=== PATIENT | female | born 1950 | race Caucasian/White ===

== ENCOUNTER 2017-03-12 04:45 | Inpatient (IN) | payer MEDICARE ==
[2017-03-12] MEDS ORDERED: KETOROLAC 30 MG/ML 1 ML VIAL IVP STA (05:15)
[2017-03-12 05:41] LABS: Basophils # (A) 0.1 k/uL (0-0.2); Basophils % (A) 1 %; CH 34.5; CHCM 35.5; Eosinophils # (A) 0.7 k/uL (0-0.7); Eosinophils % (A) 10 %; HCT 37.6 % (34.0-46.0); HDW 2.76; Luc # (Auto) 0.14; Luc % (Auto) 2; Lymphocytes # (A) 3.1 k/uL (1.0-4.8); Lymphocytes % (A) 48 %; MCH 33.7 pg (25.0-35.0); MCHC 34.5 g/dL (31.0-37.0); MCV 97.8 fL (80.0-100.0); Mean Platelet Volume 8.7; Monocytes # (A) 0.4 k/uL (0-1.0); Monocytes % (A) 6 %; Neutrophils % (A) 32 %; RBC 3.85 m/uL (3.80-5.40); WBC 6.4 k/uL (3.8-10.6); WBC (Perox) 5.89
[2017-03-12 06:14] LABS: ALT 31 U/L (9-52); AST 27 U/L (14-36); Alkaline Phosphatase 81 U/L (38-126); Anion Gap 7 mmol/L; Blood Urea Nitrogen 18 mg/dL (7-17); Calcium 9.3 mg/dL (8.4-10.2); Carbon Dioxide 29 mmol/L (22-30); Chloride 103 mmol/L (98-107); Glucose 92 mg/dL (74-99); Non-African American GFR(MDRD) >60 (>60 ml/min/1.73 sqM); Potassium 3.5 mmol/L (3.5-5.1); Sodium 139 mmol/L (137-145); Total Bilirubin 0.4 mg/dL (0.2-1.3); Total Protein 6.2 g/dL (6.3-8.2)
[2017-03-12 06:35] LABS: Erythrocyte Sedimentation Rate 9 mm/hr (0-20)
--- NOTE | 2017-03-12 06:45 | ED ---
Seizure HPI - General Source: patient Mode of arrival: wheelchair Limitations: no limitations - History of Present Illness MD Complaint: seizure Onset/Timin -: hour(s) Description of Episode: loss of consciousness, tonic-clonic movement -: second(s) Witnessed: yes - by bystander Trauma: No Place: home Possible Precipitating Event: none <Julian Buckley - Last Filed: 03/12/17 06:50> <Brandon Royal - Last Filed: 03/12/17 08:00> - General Chief Complaint: Seizure Stated Complaint: seizure,arm pain,nausea Time Seen by Provider: 03/12/17 05:03 - History of Present Illness Initial Comments: This patient is a 66-year-old woman with 2 complaints. The first is that she is having some pain to her left arm. She states it seems to start somewhere in her left thoracic back or under the axilla, and it goes towards her left elbow and forearm. This pain is been present for a month but is been getting worse over approximately a week or so. She states that she first had the pain probably over 6 months ago and it ended up with her having an ulnar nerve release in August in [place] which did relieve the pain and she did not have symptoms until a month ago. She describes the pain as a deep aching, severe intensity, without any worsening or relieving factors. The patient believes that this may have precipitated the seizure tonight. She does have history of seizures and takes Keppra for this. Patient denies any trauma as a result of the seizure. She is back to baseline currently. (Julian Buckley) - Related Data Home Medications Medication Instructions Recorded Confirmed Allopurinol [Zyloprim] 300 mg PO DAILY@1200 08/15/14 05/08/15 Aspirin 81 mg PO DAILY 08/15/14 05/08/15 Calcium Carbonate/Vitamin D3 1 tab PO BID 08/15/14 05/08/15 [Calcium 600 + Vit D Tablet] Cyanocobalamin [Vitamin B-12] 1,000 mcg PO DAILY@1200 08/15/14 05/08/15 Hydrochlorothiazide [Hydrodiuril] 25 mg PO DAILY@1200 08/15/14 05/08/15 Irbesartan [Avapro] 300 mg PO HS 08/15/14 05/08/15 L.acidoph/B.long/L.plant/B.lac 1 cap PO DAILY 08/15/14 05/08/15 [Probiotic Acidophilus Beads] Multivitamin/Iron/Folic Acid 0.5 tab PO BID 08/15/14 05/08/15 [Centrum Complete Multivit Tab] Niacin [Niaspan] 500 mg PO HS 08/15/14 05/08/15 Mabie-3 Fatty Acids/Fish Oil [Fish 1 cap PO BID 08/15/14 05/08/15 Oil 1,000 mg Softgel] Potassium Chloride [Klor-Con 10] 10 meq PO DAILY 08/15/14 05/08/15 Propafenone [Rythmol] 150 mg PO TID 08/15/14 05/08/15 traMADol HCl [Ultram] 50 mg PO Q6H PRN 08/15/14 05/08/15 Tumeric/Curcumin 1 tab PO DAILY@1200 05/08/15 05/08/15 Previous Rx's Medication Instructions Recorded levETIRAcetam [Keppra] 500 mg PO Q12HR #120 tab 08/19/14 Cyclobenzaprine [Flexeril] 10 mg PO DAILY #30 tablet 05/10/15 Levofloxacin [Levaquin] 500 mg PO DAILY #3 tab 05/10/15 Magnesium Oxide [Mag-Ox] 250 mg PO DAILY #30 tab 05/10/15 Omeprazole [PriLOSEC] 20 mg PO DAILY #30 cap 05/10/15 Allergies Allergy/AdvReac Type Severity Reaction Status Date / Time celecoxib [From Celebrex] Allergy Severe MUSCLE PAIN Verified 03/12/17 04:52 dabigatran etexilate mesylate Allergy Unknown Verified 03/12/17 04:52 [From Pradaxa] rosuvastatin calcium Allergy Swelling Verified 03/12/17 04:52 [From Crestor] hydromorphone HCl AdvReac Severe SEIZURE Verified 03/12/17 04:52 [From Dilaudid] diclofenac sodium AdvReac GI BLEED Verified 03/12/17 04:52 [From Voltaren] gabapentin [From Neurontin] AdvReac Rash/Hives Verified 03/12/17 04:52 hydrocodone bitartrate AdvReac Nausea & Verified 03/12/17 04:52 [From Vicodin] Vomiting isradipine [From DynaCirc] AdvReac Rash/Hives Verified 03/12/17 04:52 oxycodone HCl AdvReac Nausea & Verified 03/12/17 04:52 [From OxyContin] Vomiting pregabalin [From Lyrica] AdvReac Rash/Hives Verified 03/12/17 04:52 simvastatin [From Zocor] AdvReac Rash/Hives Verified 03/12/17 04:52 Tetanus Vaccines and Toxoid AdvReac Rash/Hives Verified 03/12/17 04:52 [Tetanus Vaccines & Toxoid] tomato Allergy Rash/Hives Uncoded 03/12/17 04:52 dairy products AdvReac Abdominal Uncoded 03/12/17 04:52 Pain Review of Systems ROS Other: All systems not noted in ROS Statement are negative. Constitutional: Denies: fever, chills, weakness Respiratory: Denies: cough, dyspnea Cardiovascular: Reports: as per HPI, chest pain. Denies: palpitations, syncope Gastrointestinal: Denies: abdominal pain, vomiting, diarrhea, melena, hematochezia Genitourinary: Denies: dysuria Musculoskeletal: Reports: as per HPI, back pain, arthralgia Skin: Denies: rash, lesions Neurological: Denies: headache, weakness, numbness, paresthesias <Julian Buckley - Last Filed: 03/12/17 06:50> ROS Other: All systems not noted in ROS Statement are negative. <Brandon Royal - Last Filed: 03/12/17 08:00> ROS Statement: Those systems with pertinent positive or pertinent negative responses have been documented in the HPI. 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 IBS. History of Any Multi-Drug Resistant Organisms: None Reported Past Surgical History: Appendectomy, Back Surgery, Hysterectomy, Orthopedic Surgery Additional Past Surgical History / Comment(s): X4 BACK SX(LAMENTECTOMY X1 AND 3 FUSIONS), PARTIAL HYSTERECTOMY, FIBROIDS REMOVED,LT CARPAL TUNNE; THRASHER NEROMA LT FOOT, BONE SPURS REMOVED. Past Anesthesia/Blood Transfusion Reactions: Motion Sickness, Postoperative Nausea & Vomiting (PONV) Additional Past Anesthesia/Blood Transfusion Reaction / Comment(s): CLUASTERPHOBIC Past Psychological History: No Psychological Hx Reported Smoking Status: Never smoker Past Alcohol Use History: Rare Past Drug Use History: None Reported - Past Family History Father Family Medical History: CVA/TIA, Myocardial Infarction ([place]) Additional Family Medical History / Comment(s): AGE 57 [place] Mother Family Medical History: Cancer, Myocardial Infarction ([place]) Additional Family Medical History / Comment(s): LUNG CA. 72 FROM [place] <MelvinJulian roach - Last Filed: 03/12/17 06:50> General Exam Limitations: no limitations General appearance: alert, in no apparent distress, obese Head exam: Present: atraumatic, normocephalic Eye exam: Present: normal appearance. Absent: scleral icterus, conjunctival injection Neck exam: Present: normal inspection, full ROM. Absent: tenderness Respiratory exam: Present: normal lung sounds bilaterally. Absent: respiratory distress, wheezes, rales, rhonchi, stridor Cardiovascular Exam: Present: normal rhythm, bradycardia, normal heart sounds. Absent: systolic murmur, diastolic murmur, rubs, gallop GI/Abdominal exam: Present: soft. Absent: distended, tenderness, guarding, rebound, mass Extremities exam: Present: normal inspection, normal capillary refill. Absent: pedal edema, calf tenderness Back exam: Present: normal inspection, other (Patient does have some tenderness to palpation of the posterior thorax. It is located in the posterior axillary line overlying ribs approximately 4 through 6. No palpable deformity.). Absent : CVA tenderness (R), CVA tenderness (L) Neurological exam: Present: alert Skin exam: Present: warm, dry, intact, normal color. Absent: rash <MelvinJulian roach - Last Filed: 03/12/17 06:50> Medical Decision Making - Lab Data Result diagrams: 03/12/17 05:30 03/12/17 05:30 - EKG Data -: EKG Interpreted by Me EKG shows normal: sinus rhythm, axis (Left axis deviation), intervals (The QRS duration is 128 ms consistent with left bundle branch block. OR interval 198 ms , QTC 425 ms), QRS complexes ((Bundle-branch block pattern) Rate: bradycardia (Rate approximate 48 bpm) Interpretation: other (Similar to EKG from 08/15/2014) <Julian Buckley - Last Filed: 03/12/17 06:50> - Lab Data Result diagrams: 03/12/17 05:30 03/12/17 05:30 <KalpeshstoneyBrandon Paola - Last Filed: 03/12/17 08:00> - Lab Data Lab Results 03/12/17 03/12/17 03/12/17 Range/Units 05:30 05:30 05:30 WBC 6.4 (3.8-10.6) k/uL RBC 3.85 (3.80-5.40) m/uL Hgb 13.0 (11.4-16.0) gm/dL Hct 37.6 (34.0-46.0) % MCV 97.8 (80.0-100.0) fL MCH 33.7 (25.0-35.0) pg MCHC 34.5 (31.0-37.0) g/dL RDW 14.0 (11.5-15.5) % Plt Count 169 (150-450) k/uL Neutrophils % 32 % Lymphocytes % 48 % Monocytes % 6 % Eosinophils % 10 % Basophils % 1 % Neutrophils # 2.0 (1.3-7.7) k/uL Lymphocytes # 3.1 (1.0-4.8) k/uL Monocytes # 0.4 (0-1.0) k/uL Eosinophils # 0.7 (0-0.7) k/uL Basophils # 0.1 (0-0.2) k/uL ESR 9 (0-20) mm/hr D-Dimer (<0.60) mg/L FEU Sodium 139 (137-145) mmol/L Potassium 3.5 (3.5-5.1) mmol/L Chloride 103 (98-107) mmol/L Carbon Dioxide 29 (22-30) mmol/L Anion Gap 7 mmol/L BUN 18 H (7-17) mg/dL Creatinine 0.89 (0.52-1.04) mg/dL Est GFR (MDRD) Af Amer >60 (>60 ml/min/1.73 sqM) Est GFR (MDRD) Non-Af >60 (>60 ml/min/1.73 sqM) Glucose 92 (74-99) mg/dL Calcium 9.3 (8.4-10.2) mg/dL Total Bilirubin 0.4 (0.2-1.3) mg/dL AST 27 (14-36) U/L ALT 31 (9-52) U/L Alkaline Phosphatase 81 (38-126) U/L Troponin I <0.012 (0.000-0.034) ng/mL Total Protein 6.2 L (6.3-8.2) g/dL Albumin 3.9 (3.5-5.0) g/dL Urine Color Urine Appearance (Clear) Urine pH (5.0-8.0) Ur Specific Marcell (1.001-1.035) Urine Protein (Negative) Urine Glucose (UA) (Negative) Urine Ketones (Negative) Urine Blood (Negative) Urine Nitrite (Negative) Urine Bilirubin (Negative) Urine Urobilinogen (<2.0) mg/dL Ur Leukocyte Esterase (Negative) Urine RBC (0-5) /hpf Urine WBC (0-5) /hpf Urine WBC Clumps (None) /hpf Ur Squamous Epith Cells (0-4) /hpf Urine Mucus (None) /hpf 03/12/17 03/12/17 Range/Units 05:30 06:54 WBC (3.8-10.6) k/uL RBC (3.80-5.40) m/uL Hgb (11.4-16.0) gm/dL Hct (34.0-46.0) % MCV (80.0-100.0) fL MCH (25.0-35.0) pg MCHC (31.0-37.0) g/dL RDW (11.5-15.5) % Plt Count (150-450) k/uL Neutrophils % % Lymphocytes % % Monocytes % % Eosinophils % % Basophils % % Neutrophils # (1.3-7.7) k/uL Lymphocytes # (1.0-4.8) k/uL Monocytes # (0-1.0) k/uL Eosinophils # (0-0.7) k/uL Basophils # (0-0.2) k/uL ESR (0-20) mm/hr D-Dimer 4.56 H (<0.60) mg/L FEU Sodium (137-145) mmol/L Potassium (3.5-5.1) mmol/L Chloride (98-107) mmol/L Carbon Dioxide (22-30) mmol/L Anion Gap mmol/L BUN (7-17) mg/dL Creatinine (0.52-1.04) mg/dL Est GFR (MDRD) Af Amer (>60 ml/min/1.73 sqM) Est GFR (MDRD) Non-Af (>60 ml/min/1.73 sqM) Glucose (74-99) mg/dL Calcium (8.4-10.2) mg/dL Total Bilirubin (0.2-1.3) mg/dL AST (14-36) U/L ALT (9-52) U/L Alkaline Phosphatase (38-126) U/L Troponin I (0.000-0.034) ng/mL Total Protein (6.3-8.2) g/dL Albumin (3.5-5.0) g/dL Urine Color Yellow Urine Appearance Cloudy H (Clear) Urine pH 8.0 (5.0-8.0) Ur Specific Marcell 1.019 (1.001-1.035) Urine Protein 1+ H (Negative) Urine Glucose (UA) Negative (Negative) Urine Ketones Negative (Negative) Urine Blood Negative (Negative) Urine Nitrite Negative (Negative) Urine Bilirubin Negative (Negative) Urine Urobilinogen <2.0 (<2.0) mg/dL Ur Leukocyte Esterase Large H (Negative) Urine RBC 19 H (0-5) /hpf Urine WBC >182 H (0-5) /hpf Urine WBC Clumps Few H (None) /hpf Ur Squamous Epith Cells <1 (0-4) /hpf Urine Mucus Rare H (None) /hpf Disposition <Julian Buckley - Last Filed: 03/12/17 06:50> <Brandon Royal - Last Filed: 03/12/17 08:00> Clinical Impression: Epileptic seizure, Urinary tract infection, Pulmonary embolism Disposition: ADMITTED IP TO THIS HOSP Condition: Good Referrals: Kim Becerril MD [Primary Care Provider] - 1-2 days
[2017-03-12] MEDS ORDERED: RX INFO: IV CONTRAST WAS GIVEN 1 EACH MISC MISCELLANE PRN (06:49)
[2017-03-12 07:19] LABS: Appearance,Urine Cloudy (Clear); Bilirubin,Urine Negative (Negative); Glucose,Urine (UA) Negative (Negative); Ketones,Urine Negative (Negative); Leukocyte Esterase,Urine Large (Negative); Mucus,Urine Rare /hpf; Nitrite,Urine Negative (Negative); Particle Count 9822; Protein,Urine 1+ (Negative); RBC,Urine 19 /hpf (0-5); Specific Gravity,Urine 1.019 (1.001-1.035); Squamous Epithelial Cell,Urine <1 /hpf (0-4); UA Billing (MACRO vs. MICRO) MICRO; Urobilinogen,Urine <2.0 mg/dL (<2.0); WBC,Urine >182 /hpf (0-5)
--- NOTE | 2017-03-12 07:52 | CT ---
EXAMINATION TYPE: CT chest angio for PE DATE OF EXAM: 03/12/2017 COMPARISON: NONE HISTORY: Lt arm and Lt chest pain with elevated D-dimer CT DLP: 393.2 mGycm Automated exposure control for dose reduction was used. CONTRAST: CT Chest for pulmonary embolism performed with with IV Contrast, patient injected with 68 mL of Omnip aque 350. FINDINGS: The lungs are clear. There is no significant axillary, internal mammary, mediastinal or hil ar adenopathy. There is, embolus within the third order branches of the right lower lobe pulmonary artery. No other definite pulmonary emboli are seen. There is no evidence of right heart strain heart size is upper li mits of normal. There is no pleural or pericardial fluid. The aortic root is mildly dilated measuring 4 cm. At the level of the proximal arch aorta is aneurysmal measuring 3.6 cm. The remainder of the a mike is normal in caliber. There is a small hiatal hernia. Visualized upper abdominal structures are otherwise normal. There is been an interpedicular fusion in the upper lumbar spine. There is degenerative disc disease and hypertrophic spondylosis throughout the dorsal spine. No bony destructive lesion is seen. IMPRESSION: 1. THIS EXAMINATION IS POSITIVE FOR PULMONARY EMBOLUS IN THE RIGHT LOWER LOBE PULMONARY ARTERY. 2. ASCENDING THORACIC AORTIC ANEURYSM. 3. SMALL HIATAL HERNIA. 4. POSTSURGICAL AND DEGENERATIVE CHANGES WITHIN THE SPINE. This report was phoned to Dr. Buckley in the OR at the time of reporting.
[2017-03-12] MEDS ORDERED: MORPHINE SULFATE 4 MG/ML SYRINGE IV PRN (07:55)
[2017-03-12] MEDS ORDERED: HEPARIN SODIUM,PORCINE 5,000 UNIT/ML 1 ML VIAL IV PRN (07:57)
[2017-03-12] MEDS ORDERED: HEPARIN SODIUM,PORCINE 10,000 UNIT/ML 1 ML VIAL IV ONE (07:57)
[2017-03-12] MEDS: HEPARIN SODIUM,PORCINE/D5W PMX 25,000 UNIT in DEXTROSE/WATER 1 500ML.BAG IV SCH (08:23)
[2017-03-12 08:31] LABS: INR 1.1 (<1.2); Prothrombin Time 10.6 sec (9.0-12.0)
[2017-03-12 09:42] LABS: Partial Thromboplastin Time 21.2 sec (22.0-30.0)
--- NOTE | 2017-03-12 11:25 | ECHOF ---
Referral Reason:pe MEASUREMENTS -------- HEIGHT: 165.1 cm WEIGHT: 94.3 kg BP: 104/57 RVIDd: 2.9 cm (< 3.3) IVSd: 1.3 cm (0.6 - 1.1) LVIDd: 5.0 cm (3.9 - 5.3) LVPWd: 1.1 cm (0.6 - 1.1) IVSs: 1.5 cm LVIDs: 3.8 cm LVPWs: 1.3 cm LA Diam: 4.0 cm (2.7 - 3.8) LAESV Index (A-L): 42.75 ml/m Ao Diam: 2.6 cm (2.0 - 3.7) AV Cusp: 2.1 cm (1.5 - 2.6) LA Diam: 4.2 cm (2.7 - 3.8) MV EXCURSION: 23.601 mm (> 18.000) MV EF SLOPE: 98 mm/s (70 - 150) EPSS: 0.1 cm MV E Audi: 0.63 m/s MV DecT: 204 ms MV A Audi: 0.71 m/s MV E/A Ratio: 0.89 RAP: 5.00 mmHg RVSP: 23.79 mmHg FINDINGS -------- Sinus rhythm. This was a technically adequate study. The left ventricular size is normal. There is mild concentric left ventricular hypertrophy. Overall left ventricular systolic function is normal with, an EF between 55 - 60 %. The right ventricle is normal in size. LA is severely dilated >40 ml/m2 The right atrial size is normal. The aortic valve is trileaflet, and appears structurally normal. No aortic stenosis or regurgitation. The mitral valve is normal. Mild mitral regurgitation is present. Mild tricuspid regurgitation present. There is no evidence of pulmonary hypertension. The right ventricular systolic pressure, as measured by Doppler, is 23.79mmHg. Trace/mild (physiologic) pulmonic regurgitation. The aortic root size is normal. There is no pericardial effusion. CONCLUSIONS -------- 1. This was a technically adequate study. 2. The aortic root size is normal. 3. There is no pericardial effusion. 4. There is mild concentric left ventricular hypertrophy. 5. Overall left ventricular systolic function is normal with, an EF between 55 - 60 %. 6. LA is severely dilated >40 ml/m2 7. The aortic valve is trileaflet, and appears structurally normal. No aortic stenosis or regurgitation. 8. Mild mitral regurgitation is present. 9. Mild tricuspid regurgitation present. 10. There is no evidence of pulmonary hypertension. 11. Trace/mild (physiologic) pulmonic regurgitation. GREEN END WORKER: Kasandra Watt RDCS
[2017-03-12 12:15] LABS: Creatine Kinase 99 U/L (30-135)
[2017-03-12 12:26] LABS: Creatine Kinase MB 1.3 ng/mL (0.0-2.4); Troponin I <0.012 ng/mL (0.000-0.034)
[2017-03-12] MEDS ORDERED: NON-FORMULARY DRUG (Omega-3 Fatty Acids/Fish Oil [Fish Oil 1,000 Mg Softgel] 1 CAP) PO SCH (12:30)
[2017-03-12] MEDS ORDERED: NON-FORMULARY DRUG (Cranberry Fruit Extract [Cranberry] 200 MG) PO SCH (12:30)
[2017-03-12] MEDS ORDERED: NON-FORMULARY DRUG (Multivitamin/Iron/Folic Acid [Centrum Complete Multivit Tab] 1 TAB) PO SCH (12:30)
--- NOTE | 2017-03-12 13:10 | P.CNPUL ---
History of Present Illness Consult date: 03/12/17 Reason for consult: dyspnea, chest pain History of present illness: Is a 66-year-old female patient who presented to the emergency department earlier this morning because of pleuritic chest pain along the left chest area. The pain was sharp, worse with deep breathing and was radiating towards her left axillary. No anterior chest pain. No angina. No nausea. No vomiting. No hemoptysis. No swelling in the lower extremities. This patient has been having difficulties with mobility. She has had previous evidence spine surgery and lumbar fusion. She was being considered for an epidural shots by the pain specialist and she had been having some weakness in the left lower extremity and this has somewhat limited her ability to walk. Earlier this morning, the patient got up at around 4:30 AM to go to the bathroom and she experienced the pain. Subsequently she has also seizure episode. She is known to have epilepsy however she has been seizure-free for many years. She has been on Keppra without any complications and the patient was successfully treated. Following the seizure, the patient had a fall and some limited trauma to her left forehead. She came into the hospital with CT angios the chest was done and the examination was positive for pulmonary embolism in the right lower lobe pulmonary artery. Interestingly the left pulmonary artery branches were clear of any pulmonary artery filling defects. 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 Pain. The patient denies having any personal of DVT or pulmonary embolism. No personal history. No history of malignancy. Her brother apparently has a factor V Leyden deficiency and had complications of DVT. No recent orthopedic surgery. She had that and ulnar nerve release approximately 6 months ago and it was only orthopedic surgeons that was done recently. She was also treated for a urinary tract infection with Bactrim. Review of Systems All systems: negative Constitutional: Denies chills, Denies fever Eyes: denies blurred vision, denies pain Ears, nose, mouth and throat: Denies headache, Denies sore throat Cardiovascular: Denies chest pain, Denies shortness of breath Respiratory: Denies cough Gastrointestinal: Denies abdominal pain, Denies diarrhea, Denies nausea, Denies vomiting Genitourinary: Denies dysuria, Denies hematuria Musculoskeletal: Denies myalgias Integumentary: Denies pruritus, Denies rash Neurological: Denies numbness, Denies weakness Psychiatric: Denies anxiety, Denies depression Endocrine: Denies fatigue, Denies weight change Past Medical History Past Medical History: Atrial Fibrillation, Asthma, Fibromyalgia, GI Bleed, Hyperlipidemia, Hypertension, Seizure Disorder Additional Past Medical History / Comment(s): Epilepsy and the patient has been seizure-free for many years, history of autoimmune disease not clearly specified workup at [facility], bronchial asthma, irritable bowel syndrome, episodes of urine checked infection, osteopenia, degenerative arthritis involving the hips and the spine, cervical and lumbar disc disease, chronic back pain, obesity, shingles, chronic myofascial pain, paroxysmal atrial fibrillation and another one point the patient was treated with a Pradaxa which was subsequently discontinued due to GI bleeding, family history factor V Leyden and the patient's brother apparently of complications of a DVT. History of Any Multi-Drug Resistant Organisms: None Reported Past Surgical History: Appendectomy, Back Surgery, Hysterectomy, Joint Replacement, Orthopedic Surgery Additional Past Surgical History / Comment(s): X4 BACK SX(LAMENTECTOMY X1 AND 3 FUSIONS), PARTIAL HYSTERECTOMY AND THEN PELVIC MASS (BENIGN) REMOVED WITH BILATERAL OVARIES, D&C, UTERINE FIBROIDS REMOVED, TOTAL L HIP ARTHROPLASTY, LT CARPAL TUNNEL, THRASHER NEUROMA LT FOOT, R HEEL BONE SPUR REMOVED, L ELBOW ULNAR RELEASE, COLONOSCOPY-NORMAL, BILATERAL KNEE ARTHROSCOPIES, BACK INJECTIONS. Past Anesthesia/Blood Transfusion Reactions: Motion Sickness, Postoperative Nausea & Vomiting (PONV) Additional Past Anesthesia/Blood Transfusion Reaction / Comment(s): CLAUSTERPHOBIC Smoking Status: Never smoker - Past Family History Father Family Medical History: CVA/TIA, Myocardial Infarction ([place]) Additional Family Medical History / Comment(s): AGE 57 [place]. HAD CVA. Mother Family Medical History: Cancer, Myocardial Infarction ([place]) Additional Family Medical History / Comment(s): LUNG CA. AT 73 FROM [place] THOUGHT CAUSED BY RADIATION [place] FOR LUNG CANCER. Medications and Allergies Home Medications Medication Instructions Recorded Confirmed Type Allopurinol [Zyloprim] 300 mg PO DAILY@1200 08/15/14 03/12/17 History Aspirin 81 mg PO DAILY 08/15/14 03/12/17 History Cyanocobalamin [Vitamin B-12] 1,000 mcg PO DAILY@1200 08/15/14 03/12/17 History Hydrochlorothiazide [Hydrodiuril] 25 mg PO DAILY@1200 08/15/14 03/12/17 History Irbesartan [Avapro] 300 mg PO HS 08/15/14 03/12/17 History L.acidoph/B.long/L.plant/B.lac 1 cap PO DAILY@1200 08/15/14 03/12/17 History [Probiotic Acidophilus Beads] Multivitamin/Iron/Folic Acid 1 tab PO DAILY 08/15/14 03/12/17 History [Centrum Complete Multivit Tab] Niacin [Niaspan] 1,000 mg PO DAILY 08/15/14 03/12/17 History [place]-3 Fatty Acids/Fish Oil [Fish 1 cap PO BID 08/15/14 03/12/17 History Oil 1,000 mg Softgel] Propafenone [Rythmol] 150 mg PO TID 08/15/14 03/12/17 History Tumeric/Curcumin 1 tab PO DAILY@1200 05/08/15 03/12/17 History Cranberry Fruit Extract [Cranberry] 200 mg PO BID 03/12/17 03/12/17 History Furosemide [Lasix] 20 mg PO HS 03/12/17 03/12/17 History Furosemide [Lasix] 40 mg PO DAILY 03/12/17 03/12/17 History Garlique 1 tab PO DAILY@1200 03/12/17 03/12/17 History Magnesium Oxide [Mag-Ox] 250 mg PO BID 03/12/17 03/12/17 History Multivitamins, Thera [Multivitamin 0.5 tab PO W/SUPPER 03/12/17 03/12/17 History (formulary)] cloNIDine HCL [Catapres] 0.05 mg PO BID 03/12/17 03/12/17 History levETIRAcetam [Keppra] 750 mg PO BID 03/12/17 03/12/17 History Allergies Allergy/AdvReac Type Severity Reaction Status Date / Time celecoxib [From Celebrex] Allergy Severe MUSCLE PAIN Verified 03/12/17 08:21 dabigatran etexilate mesylate Allergy Unknown Verified 03/12/17 08:21 [From Pradaxa] rosuvastatin calcium Allergy Swelling Verified 03/12/17 08:21 [From Crestor] hydromorphone HCl AdvReac Severe SEIZURE Verified 03/12/17 08:21 [From Dilaudid] diclofenac sodium AdvReac GI BLEED Verified 03/12/17 08:21 [From Voltaren] gabapentin [From Neurontin] AdvReac Rash/Hives Verified 03/12/17 08:21 hydrocodone bitartrate AdvReac Nausea & Verified 03/12/17 08:21 [From Vicodin] Vomiting isradipine [From DynaCirc] AdvReac Rash/Hives Verified 03/12/17 08:21 oxycodone HCl AdvReac Nausea & Verified 03/12/17 08:21 [From OxyContin] Vomiting pregabalin [From Lyrica] AdvReac Rash/Hives Verified 03/12/17 08:21 simvastatin [From Zocor] AdvReac Rash/Hives Verified 03/12/17 08:21 Tetanus Vaccines and Toxoid AdvReac Rash/Hives Verified 03/12/17 08:21 [Tetanus Vaccines & Toxoid] tomato Allergy Rash/Hives Uncoded 03/12/17 04:52 dairy products AdvReac Abdominal Uncoded 03/12/17 04:52 Pain Physical Exam Vitals: Vital Signs Temp Pulse Pulse Resp BP BP Pulse Ox 03/12/17 10:15 97.8 F 49 L 16 114/59 100 03/12/17 08:26 97.1 F L 51 L 18 104/57 99 03/12/17 07:46 56 L 18 119/59 98 03/12/17 06:55 52 L 20 108/59 97 03/12/17 06:08 97.3 F L 71 16 115/68 99 03/12/17 05:15 55 L 18 107/56 98 03/12/17 04:49 97.4 F L 50 L 16 92/60 98 Intake and Output 03/11/17 03/12/17 03/12/17 22:59 06:59 14:59 Other: Weight 94.347 kg The patient appeared well nourished and normally developed. Vital signs as documented. Head exam is unremarkable. No scleral icterus or corneal arcus noted. Neck is without jugular venous distension, thyromegaly, or carotid bruits. Carotid upstrokes are brisk bilaterally. Lungs are clear to auscultation and percussion. Cardiac exam reveals the PMI to be normally sized and situated. Rhythm is regular. First and second heart sounds normal. No murmurs, rubs or gallops. Abdominal exam reveals normal bowel sounds, no masses , no organomegaly and no aortic enlargement. Extremities are nonedematous and both femoral and pedal pulses are normal. Results - Laboratory Findings CBC and BMP: 03/12/17 05:30 03/12/17 05:30 PT/INR, D-dimer PT 10.6 sec (9.0-12.0) 03/12/17 05:30 INR 1.1 (<1.2) 03/12/17 05:30 D-Dimer 4.56 mg/L FEU (<0.60) H 03/12/17 05:30 Abnormal lab findings: Abnormal Labs 03/12/17 03/12/17 03/12/17 05:30 05:30 05:30 APTT 21.2 L D-Dimer 4.56 H BUN 18 H Total Protein 6.2 L Urine Appearance Urine Protein Ur Leukocyte Esterase Urine RBC Urine WBC Urine WBC Clumps Urine Mucus 03/12/17 06:54 APTT D-Dimer BUN Total Protein Urine Appearance Cloudy H Urine Protein 1+ H Ur Leukocyte Esterase Large H Urine RBC 19 H Urine WBC >182 H Urine WBC Clumps Few H Urine Mucus Rare H - Diagnostic Findings CT scan - chest: image reviewed Assessment and Plan Plan: Assessment 1 acute pleuritic left-sided chest pain, most likely in the setting of a pulmonary embolism. Interestingly, the filling defects were seen in the right compared to the left and the patient has filling defects of the right lower lobe pulmonary artery branches. This does not rule out the possibility of embolization to the left. Dopplers of the lower extremities are pending. 2 questionable family history of factor V Leyden 3 epilepsy with breakthrough seizures 4 paroxysmal atrial fibrillation on no anticoagulants 5 previous history of GI bleed currently inactive and stable hemoglobin is at 13.0 6 difficulty with mobility and gait and the patient has been having left lower extremity weakness and she's been essentially sedentary 7 cervical and lumbar degenerative disc disease with previous surgeries and fusions and multilevel laminectomy 8 fibromyalgia 9 hyperlipidemia 10 hypertension 11 bronchial asthma 12 gout 13 question history of autoimmune disease has not been completely specified Plan Continue IV coagulation with IV heparin. Meanwhile a CAT scan of the brain will be needed to make sure there is no MEDICATION CARE MANAGER bleed in the setting of a seizure and a head trauma following a fall. If The Brain Is Negative, Will Transition This Patient to a Oral Anticoagulant of Choice with Special Attention to GI Bleed Knowing That the Patient Has Had Bleeding in the past. We'll order Doppler of the lower extremity. We'll order an echocardiogram to assess RV function and assess for pulmonary hypertension. Reasonable to obtain a hypercoagulable workup at a later stage and ruling out the possibility of a factor V Leyden and this will and may dictate the duration of anticoagulation. We'll continue to follow.
--- NOTE | 2017-03-12 13:15 | P.HPIM ---
History of Present Illness H&P Date: 03/12/17 Chief Complaint: seizure and pulmonary embolism Patient is a 66-year-old female well known to my practice who presented to [facility] emergency room after having 2 seizures at home. Patient states that she felt weak and nauseated she went to the bathroom where she had a seizure she fell to the floor and was unconscious her followed her to the bathroom patient regained consciousness however shortly after she had another episode of loss of consciousness. Patient states that these 2 episodes are similar to previous history of seizures that she had in the past she states that she gets an aura with severe nausea, then she loses consciousness she never has any limb movements. Patient has been followed by Dr. Mujica, she is maintained on Keppra 750 mg twice daily which she has been taking regularly. Patient was brought in to [facility] emergency room, she was complaining of severe left arm pain, d-dimer was elevated at 4.5, CT angiogram of the chest was done and was positive for pulmonary embolism, patient was started on IV heparin and was admitted to telemetry floor. Patient also was complaining of frequency was urination urine analysis was done in the emergency room and revealed evidence of urinary tract infection she was started on IV Rocephin 1 g every 24 hours. Past Medical History Past Medical History: Atrial Fibrillation, Asthma, Fibromyalgia, GI Bleed, Hyperlipidemia, Hypertension, Seizure Disorder Additional Past Medical History / Comment(s): Seizure disorder with last seizure 03/12/17, autoimmune dx unknown etiology-worked up at [facility], Pts brother has factor V and from a DVT and pt states she has been tested and does not have it, remote asthma, lower GI bleed r/t pradaxa, IBS, UTIs, UTI with sepsis, osteopenia, degenerative arthritis bilateral hips and spine, herniated disc, chronic back pain, myofascial pain syndrome, edema legs/feet, shingelles x3 History of Any Multi-Drug Resistant Organisms: None Reported Past Surgical History: Appendectomy, Back Surgery, Hysterectomy, Joint Replacement, Orthopedic Surgery Additional Past Surgical History / Comment(s): X4 BACK SX(LAMENTECTOMY X1 AND 3 FUSIONS), PARTIAL HYSTERECTOMY AND THEN PELVIC MASS (BENIGN) REMOVED WITH BILATERAL OVARIES, D&C, UTERINE FIBROIDS REMOVED, TOTAL L HIP ARTHROPLASTY, LT CARPAL TUNNEL, THRASHER NEUROMA LT FOOT, R HEEL BONE SPUR REMOVED, L ELBOW ULNAR RELEASE, COLONOSCOPY-NORMAL, BILATERAL KNEE ARTHROSCOPIES, BACK INJECTIONS. Past Anesthesia/Blood Transfusion Reactions: Motion Sickness, Postoperative Nausea & Vomiting (PONV) Additional Past Anesthesia/Blood Transfusion Reaction / Comment(s): CLAUSTERPHOBIC Smoking Status: Never smoker - Past Family History Father Family Medical History: CVA/TIA, Myocardial Infarction ([place]) Additional Family Medical History / Comment(s): AGE 57 [place]. HAD CVA. Mother Family Medical History: Cancer, Myocardial Infarction ([place]) Additional Family Medical History / Comment(s): LUNG CA. AT 73 FROM [place] THOUGHT CAUSED BY RADIATION [place] FOR LUNG CANCER. Medications and Allergies Home Medications Medication Instructions Recorded Confirmed Type Allopurinol [Zyloprim] 300 mg PO DAILY@1200 08/15/14 03/12/17 History Aspirin 81 mg PO DAILY 08/15/14 03/12/17 History Cyanocobalamin [Vitamin B-12] 1,000 mcg PO DAILY@1200 08/15/14 03/12/17 History Hydrochlorothiazide [Hydrodiuril] 25 mg PO DAILY@1200 08/15/14 03/12/17 History Irbesartan [Avapro] 300 mg PO HS 08/15/14 03/12/17 History L.acidoph/B.long/L.plant/B.lac 1 cap PO DAILY@1200 08/15/14 03/12/17 History [Probiotic Acidophilus Beads] Multivitamin/Iron/Folic Acid 1 tab PO DAILY 08/15/14 03/12/17 History [Centrum Complete Multivit Tab] Niacin [Niaspan] 1,000 mg PO DAILY 08/15/14 03/12/17 History [place]-3 Fatty Acids/Fish Oil [Fish 1 cap PO BID 08/15/14 03/12/17 History Oil 1,000 mg Softgel] Propafenone [Rythmol] 150 mg PO TID 08/15/14 03/12/17 History Tumeric/Curcumin 1 tab PO DAILY@1200 05/08/15 03/12/17 History Cranberry Fruit Extract [Cranberry] 200 mg PO BID 03/12/17 03/12/17 History Furosemide [Lasix] 20 mg PO HS 03/12/17 03/12/17 History Furosemide [Lasix] 40 mg PO DAILY 03/12/17 03/12/17 History Garlique 1 tab PO DAILY@1200 03/12/17 03/12/17 History Magnesium Oxide [Mag-Ox] 250 mg PO BID 03/12/17 03/12/17 History Multivitamins, Thera [Multivitamin 0.5 tab PO W/SUPPER 03/12/17 03/12/17 History (formulary)] cloNIDine HCL [Catapres] 0.05 mg PO BID 03/12/17 03/12/17 History levETIRAcetam [Keppra] 750 mg PO BID 03/12/17 03/12/17 History Allergies Allergy/AdvReac Type Severity Reaction Status Date / Time celecoxib [From Celebrex] Allergy Severe MUSCLE PAIN Verified 03/12/17 08:21 dabigatran etexilate mesylate Allergy Unknown Verified 03/12/17 08:21 [From Pradaxa] rosuvastatin calcium Allergy Swelling Verified 03/12/17 08:21 [From Crestor] hydromorphone HCl AdvReac Severe SEIZURE Verified 03/12/17 08:21 [From Dilaudid] diclofenac sodium AdvReac GI BLEED Verified 03/12/17 08:21 [From Voltaren] gabapentin [From Neurontin] AdvReac Rash/Hives Verified 03/12/17 08:21 hydrocodone bitartrate AdvReac Nausea & Verified 03/12/17 08:21 [From Vicodin] Vomiting isradipine [From DynaCirc] AdvReac Rash/Hives Verified 03/12/17 08:21 oxycodone HCl AdvReac Nausea & Verified 03/12/17 08:21 [From OxyContin] Vomiting pregabalin [From Lyrica] AdvReac Rash/Hives Verified 03/12/17 08:21 simvastatin [From Zocor] AdvReac Rash/Hives Verified 03/12/17 08:21 Tetanus Vaccines and Toxoid AdvReac Rash/Hives Verified 03/12/17 08:21 [Tetanus Vaccines & Toxoid] tomato Allergy Rash/Hives Uncoded 03/12/17 04:52 dairy products AdvReac Abdominal Uncoded 03/12/17 04:52 Pain Physical Exam Vitals: Vital Signs Temp Pulse Pulse Resp BP BP Pulse Ox 03/12/17 10:15 97.8 F 49 L 16 114/59 100 03/12/17 08:26 97.1 F L 51 L 18 104/57 99 03/12/17 07:46 56 L 18 119/59 98 03/12/17 06:55 52 L 20 108/59 97 03/12/17 06:08 97.3 F L 71 16 115/68 99 03/12/17 05:15 55 L 18 107/56 98 03/12/17 04:49 97.4 F L 50 L 16 92/60 98 Intake and Output 03/11/17 03/12/17 03/12/17 22:59 06:59 14:59 Other: Weight 94.347 kg In general patient is alert and oriented 3 in no apparent distress HEENT head normocephalic and atraumatic Neck is supple no JVD no goiter no lymphadenopathy Chest exam reveals a few scattered rhonch bilaterally no wheezing Cardiac exam reveals regular heart sounds S1 and S2 no gallops no murmurs Abdomen is soft nontender no organomegaly with normal bowel sounds Extremity exam reveals no edema no cyanosis or clubbing Results CBC & Chem 7: 03/12/17 05:30 03/12/17 05:30 Labs: Abnormal Lab Results - Last 24 Hours (Table) 03/12/17 03/12/17 03/12/17 Range/Units 05:30 05:30 05:30 APTT 21.2 L (22.0-30.0) sec D-Dimer 4.56 H (<0.60) mg/L FEU BUN 18 H (7-17) mg/dL Total Protein 6.2 L (6.3-8.2) g/dL Urine Appearance (Clear) Urine Protein (Negative) Ur Leukocyte Esterase (Negative) Urine RBC (0-5) /hpf Urine WBC (0-5) /hpf Urine WBC Clumps (None) /hpf Urine Mucus (None) /hpf 03/12/17 Range/Units 06:54 APTT (22.0-30.0) sec D-Dimer (<0.60) mg/L FEU BUN (7-17) mg/dL Total Protein (6.3-8.2) g/dL Urine Appearance Cloudy H (Clear) Urine Protein 1+ H (Negative) Ur Leukocyte Esterase Large H (Negative) Urine RBC 19 H (0-5) /hpf Urine WBC >182 H (0-5) /hpf Urine WBC Clumps Few H (None) /hpf Urine Mucus Rare H (None) /hpf Thrombosis Risk Factor Assmnt - Choose All That Apply Any of the Below Risk Factors Present?: Yes Each Factor Represents 1 point: Obesity (BMI >25) Other Risk Factors: Yes Each Risk Factor Represents 2 Points: Age 61-74 years Each Risk Factor Represents 3 Points: History of DVT/PE Other congenital or acquired thrombophilia - If yes, enter type in comment: No Thrombosis Risk Factor Assessment Total Risk Factor Score: 6 Thrombosis Risk Factor Assessment Level: High Risk Assessment and Plan Plan: #1 2 episodes of loss of consciousness, with known history of seizure disorder, episodes were similar to her previous seizures, at this time continue was Keppra 750 mg twice daily, neurology consultation was requested. #2 pulmonary embolism, d-dimer was elevated at 4.56, CT angiogram of the chest was positive for pulmonary embolus in the right lower lobe pulmonary artery, patient was started on IV heparin. Bilateral lower extremity Doppler and left upper extremity Doppler were ordered patient was complaining of left upper extremity pain of unknown cause. #3 urinary tract infection patient was started on IV Rocephin 1 g every 24 hours. Urine culture were ordered. #4 underlying history of hypertension continue was current medications #4 underlying history of hyperlipidemia maintained on Niaspan continue #5 underlying history of gout maintained on allopurinol continue #6 underlying history of paroxysmal atrial fibrillation #7 underlying history of autoimmune disorder, not clearly identified followed at [facility] also diagnosed then with fibromyalgia #8 previous history of gastrointestinal bleeding At this time continue was current management will follow closely cardiology, pulmonary, neurology consultation are requested Continue with IV heparin continue with IV Rocephin
--- NOTE | 2017-03-12 14:21 | US ---
EXAMINATION TYPE: US venous doppler duplex LE DATE OF EXAM: 03/12/2017 10:58 AM COMPARISON: NONE CLINICAL HISTORY: r/o dvt. Pt currently being treated for newly diagnosed PE SIDE PERFORMED: Bilateral TECHNIQUE: The lower extremity deep venous system is examined utilizing real time linear array sonog jay with graded compression, doppler sonography and color-flow sonography. VESSELS IMAGED: External Iliac Vein (EIV) Common Femoral Vein Deep Femoral Vein Greater Saphenous Vein * Femoral Vein Popliteal Vein Small Saphenous Vein * Proximal Calf Veins (* superficial vessels) Right Leg: Negative for DVT Left Leg: Negative for DVT Grayscale, color doppler, spectral doppler imaging performed of the deep veins of the lower extremiti es. There is normal flow, compressibility, vascular waveforms bilaterally. IMPRESSION: No ultrasound evidence for acute DVT in either lower extremity.
--- NOTE | 2017-03-12 14:56 | US ---
EXAMINATION TYPE: US venous doppler duplex UE LT DATE OF EXAM: 03/12/2017 COMPARISON: NONE CLINICAL HISTORY: pain left arm, pulm embolism. Pain left upper arm SIDE PERFORMED: left Left Arm: No evidence of DVT as visualized. Incidental finding: left thyroid nodule = 2.5 x 1.6 x 2.0 cm IMPRESSION: 1. THIS EXAMINATION IS NEGATIVE FOR DVT IN THE LEFT ARM. 2. 2.5 CM LEFT THYROID NODULE. CONSIDERATION MIGHT BE GIVEN TO BIOPSYING THIS LESION.
[2017-03-12] MEDS: ASPIRIN 81 MG CHEW PO SCH (15:39)
[2017-03-12] MEDS: FUROSEMIDE 40 MG TAB PO SCH (15:39)
[2017-03-12] MEDS: NIACIN TR 500 MG CAPSULE.ER PO SCH (15:39)
[2017-03-12] MEDS: MAGNESIUM OXIDE 400 MG TAB PO SCH ×2 (15:39→21:20)
[2017-03-12] MEDS: cloNIDine HCL 0.1 MG TAB PO SCH ×2 (15:40→23:38)
[2017-03-12] MEDS: PROPAFENONE 150 MG TAB PO SCH ×2 (15:42→21:20)
--- NOTE | 2017-03-12 15:49 | P.CRDCN ---
History of Present Illness Consult date: 03/12/17 Reason for Consult (text): Chest pain Chief complaint: left arm pain, loss of consciousness, poss seizure History of present illness: This is a pleasant 66-year-old female patient who follows with Dr. Nicole in the office. She has a known history of atrial fibrillation, GI bleed on pradaxa , seizure disorder and hypertension. Presented to the emergency department with complaints of left sided mid axillary pain and left arm pain followed by a wave of nausea and loss of consciousness. Patient believes she may have had a seizure however this was unwitnessed. Upon presentation, D dimer was found to be elevated and a CT of the chest showed right lower lobe pulmonary artery embolism. Troponins have been negative 2. EKG showed sinus bradycardia with bundle branch block. Patient denies any travel since mid December at which time she flew home from [place]. She denies any complaints of calf pain redness or warmth. She's had no complaints of shortness of breath and no right-sided chest pain. Upon examination, she is resting comfortably in bed. She denies any further complaints of chest discomfort. She is scheduled to undergo venous Doppler to rule out DVT. 2-D echo with Doppler showed normal LV systolic function without RV enlargement. Past Medical History Past Medical History: Atrial Fibrillation, Asthma, Fibromyalgia, GI Bleed, Hyperlipidemia, Hypertension, Seizure Disorder Additional Past Medical History / Comment(s): Seizure disorder with last seizure 03/12/17, autoimmune dx unknown etiology-worked up at [facility], Pts brother has factor V and from a DVT and pt states she has been tested and does not have it, remote asthma, lower GI bleed r/t pradaxa, IBS, UTIs, UTI with sepsis, osteopenia, degenerative arthritis bilateral hips and spine, herniated disc, chronic back pain, myofascial pain syndrome, edema legs/feet, shingelles x3 History of Any Multi-Drug Resistant Organisms: None Reported Past Surgical History: Appendectomy, Back Surgery, Hysterectomy, Joint Replacement, Orthopedic Surgery Additional Past Surgical History / Comment(s): X4 BACK SX(LAMENTECTOMY X1 AND 3 FUSIONS), PARTIAL HYSTERECTOMY AND THEN PELVIC MASS (BENIGN) REMOVED WITH BILATERAL OVARIES, D&C, UTERINE FIBROIDS REMOVED, TOTAL L HIP ARTHROPLASTY, LT CARPAL TUNNEL, THRASHER NEUROMA LT FOOT, R HEEL BONE SPUR REMOVED, L ELBOW ULNAR RELEASE, COLONOSCOPY-NORMAL, BILATERAL KNEE ARTHROSCOPIES, BACK INJECTIONS. Past Anesthesia/Blood Transfusion Reactions: Motion Sickness, Postoperative Nausea & Vomiting (PONV) Additional Past Anesthesia/Blood Transfusion Reaction / Comment(s): CLAUSTERPHOBIC Smoking Status: Never smoker - Past Family History Father Family Medical History: CVA/TIA, Myocardial Infarction ([place]) Additional Family Medical History / Comment(s): AGE 57 [place]. HAD CVA. Mother Family Medical History: Cancer, Myocardial Infarction ([place]) Additional Family Medical History / Comment(s): LUNG CA. AT 73 FROM [place] THOUGHT CAUSED BY RADIATION [place] FOR LUNG CANCER. Medications and Allergies Home Medications Medication Instructions Recorded Confirmed Type Allopurinol [Zyloprim] 300 mg PO DAILY@1200 08/15/14 03/12/17 History Aspirin 81 mg PO DAILY 08/15/14 03/12/17 History Cyanocobalamin [Vitamin B-12] 1,000 mcg PO DAILY@1200 08/15/14 03/12/17 History Hydrochlorothiazide [Hydrodiuril] 25 mg PO DAILY@1200 08/15/14 03/12/17 History Irbesartan [Avapro] 300 mg PO HS 08/15/14 03/12/17 History L.acidoph/B.long/L.plant/B.lac 1 cap PO DAILY@1200 08/15/14 03/12/17 History [Probiotic Acidophilus Beads] Multivitamin/Iron/Folic Acid 1 tab PO DAILY 08/15/14 03/12/17 History [Centrum Complete Multivit Tab] Niacin [Niaspan] 1,000 mg PO DAILY 08/15/14 03/12/17 History Welcome-3 Fatty Acids/Fish Oil [Fish 1 cap PO BID 08/15/14 03/12/17 History Oil 1,000 mg Softgel] Propafenone [Rythmol] 150 mg PO TID 08/15/14 03/12/17 History Tumeric/Curcumin 1 tab PO DAILY@1200 05/08/15 03/12/17 History Cranberry Fruit Extract [Cranberry] 200 mg PO BID 03/12/17 03/12/17 History Furosemide [Lasix] 20 mg PO HS 03/12/17 03/12/17 History Furosemide [Lasix] 40 mg PO DAILY 03/12/17 03/12/17 History Garlique 1 tab PO DAILY@1200 03/12/17 03/12/17 History Magnesium Oxide [Mag-Ox] 250 mg PO BID 03/12/17 03/12/17 History Multivitamins, Thera [Multivitamin 0.5 tab PO W/SUPPER 03/12/17 03/12/17 History (formulary)] cloNIDine HCL [Catapres] 0.05 mg PO BID 03/12/17 03/12/17 History levETIRAcetam [Keppra] 750 mg PO BID 03/12/17 03/12/17 History Allergies Allergy/AdvReac Type Severity Reaction Status Date / Time celecoxib [From Celebrex] Allergy Severe MUSCLE PAIN Verified 03/12/17 08:21 dabigatran etexilate mesylate Allergy Unknown Verified 03/12/17 08:21 [From Pradaxa] rosuvastatin calcium Allergy Swelling Verified 03/12/17 08:21 [From Crestor] hydromorphone HCl AdvReac Severe SEIZURE Verified 03/12/17 08:21 [From Dilaudid] diclofenac sodium AdvReac GI BLEED Verified 03/12/17 08:21 [From Voltaren] gabapentin [From Neurontin] AdvReac Rash/Hives Verified 03/12/17 08:21 hydrocodone bitartrate AdvReac Nausea & Verified 03/12/17 08:21 [From Vicodin] Vomiting isradipine [From DynaCirc] AdvReac Rash/Hives Verified 03/12/17 08:21 oxycodone HCl AdvReac Nausea & Verified 03/12/17 08:21 [From OxyContin] Vomiting pregabalin [From Lyrica] AdvReac Rash/Hives Verified 03/12/17 08:21 simvastatin [From Zocor] AdvReac Rash/Hives Verified 03/12/17 08:21 Tetanus Vaccines and Toxoid AdvReac Rash/Hives Verified 03/12/17 08:21 [Tetanus Vaccines & Toxoid] tomato Allergy Rash/Hives Uncoded 03/12/17 04:52 dairy products AdvReac Abdominal Uncoded 03/12/17 04:52 Pain Physical Exam Vitals: Vital Signs Temp Pulse Pulse Resp BP BP Pulse Ox 03/12/17 10:15 97.8 F 49 L 16 114/59 100 03/12/17 08:26 97.1 F L 51 L 18 104/57 99 03/12/17 07:46 56 L 18 119/59 98 03/12/17 06:55 52 L 20 108/59 97 03/12/17 06:08 97.3 F L 71 16 115/68 99 03/12/17 05:15 55 L 18 107/56 98 03/12/17 04:49 97.4 F L 50 L 16 92/60 98 Intake and Output 03/12/17 03/12/17 03/12/17 06:59 14:59 22:59 Intake Total 120 Balance 120 Intake: Oral 120 Other: Weight 94.347 kg PHYSICAL EXAMINATION: HEENT: Head is atraumatic, normocephalic. Pupils equal, round. Neck is supple. There is no elevated jugular venous pressure. HEART EXAMINATION: Heart sounds regular, S1 and S2 normal with a systolic murmur. CHEST EXAMINATION: Lungs are clear to auscultation and precussion. No chest wall tenderness is noted on palpation or with deep breathing. ABDOMEN: Soft, nontender. Bowel sounds are heard. No organomegaly noted. EXTREMITIES: 2+ peripheral pulses with no evidence of peripheral edema and no calf tenderness noted. NEUROLOGIC patient is awake, alert and oriented x3. . Results 03/12/17 05:30 03/12/17 05:30 Cardiac Enzymes 03/12/17 03/12/17 03/12/17 Range/Units 05:30 05:30 11:26 AST 27 (14-36) U/L CK-MB (CK-2) 1.3 (0.0-2.4) ng/mL Troponin I <0.012 <0.012 (0.000-0.034) ng/mL Coagulation 03/12/17 03/12/17 Range/Units 05:30 14:46 PT 10.6 (9.0-12.0) sec APTT 21.2 L 35.5 H (22.0-30.0) sec CBC 03/12/17 Range/Units 05:30 WBC 6.4 (3.8-10.6) k/uL RBC 3.85 (3.80-5.40) m/uL Hgb 13.0 (11.4-16.0) gm/dL Hct 37.6 (34.0-46.0) % Plt Count 169 (150-450) k/uL Comprehensive Metabolic Panel 03/12/17 Range/Units 05:30 Sodium 139 (137-145) mmol/L Potassium 3.5 (3.5-5.1) mmol/L Chloride 103 (98-107) mmol/L Carbon Dioxide 29 (22-30) mmol/L BUN 18 H (7-17) mg/dL Creatinine 0.89 (0.52-1.04) mg/dL Glucose 92 (74-99) mg/dL Calcium 9.3 (8.4-10.2) mg/dL AST 27 (14-36) U/L ALT 31 (9-52) U/L Alkaline Phosphatase 81 (38-126) U/L Total Protein 6.2 L (6.3-8.2) g/dL Albumin 3.9 (3.5-5.0) g/dL Current Medications Generic Name Dose Route Start Last Admin Trade Name Freq PRN Reason Stop Dose Admin Allopurinol 300 mg 03/13/17 12:00 Zyloprim PO DAILY@1200 [facility] Aspirin 81 mg 03/12/17 12:30 Aspirin PO DAILY [facility] Clonidine 0.05 mg 03/12/17 12:30 Catapres PO BID [facility] Cyanocobalamin 1,000 mcg 03/13/17 12:00 Vitamin B-12 PO DAILY@1200 [facility] Furosemide 20 mg 03/12/17 21:00 Lasix PO HS [facility] Furosemide 40 mg 03/12/17 12:30 Lasix PO DAILY [facility] Heparin Sodium (Porcine) 0 unit 03/12/17 07:57 Heparin IV PER PROTOCOL PRN Low PTT Protocol Hydrochlorothiazide 25 mg 03/13/17 12:00 Hydrodiuril PO DAILY@1200 [facility] Heparin Sodium/Dextrose 25,000 500 mls @ 33.96 mls/hr 03/12/17 07:57 08:23 unit/ IV Solution IV 18 units/kg/hr .[id number] [facility] 33.96 mls/hr Protocol Administration 18 UNITS/KG/HR Ceftriaxone Sodium 1,000 mg/ 50 mls @ 100 mls/hr 03/13/17 09:00 Sodium Chloride IVPB Q24HR [facility] Lactobacillus Acidoph/Bulgaricus 1 each 03/13/17 12:00 Lactinex PO DAILY@1200 [facility] Levetiracetam 750 mg 03/12/17 21:00 Keppra PO BID [facility] Losartan Potassium 100 mg 03/12/17 21:00 Cozaar PO HS [facility] Magnesium Oxide 400 mg 03/12/17 12:30 Mag-Ox PO BID [facility] Miscellaneous Information 1 each 03/12/17 06:49 03/12/17 07:46 Rx Info: Iv Contrast Was Given MISCELLANE 03/14/17 06:49 1 each DAILY PRN Administration Per Protocol Morphine Sulfate 4 mg 03/12/17 07:55 Morphine Sulfate (Inj) IV Q4H PRN Chest Pain Multivitamins 0.5 each 03/13/17 12:00 Theragran PO DAILY@1200 [facility] Niacin 1,000 mg 03/12/17 12:30 Niacin Tr PO DAILY [facility] Propafenone HCl 150 mg 03/12/17 16:00 Rythmol PO TID [facility] Intake and Output 03/12/17 03/12/17 03/12/17 06:59 14:59 22:59 Intake Total 120 Balance 120 Intake: Oral 120 Other: Weight 94.347 kg 03/12/17 05:30 03/12/17 05:30 Assessment and Plan Plan: Assessment and plan #1 paroxysmal atrial flutter, not currently on anticoagulation due to GI bleed while on Pradaxa #2 chest discomfort, troponins negative 2 #3 evidence of PE on CTA #4 seizure disorder From cardiology's perspective, we will continue IV heparin at this time. Loss of consciousness could be related to syncope secondary to PE or seizure disorder. We will discuss further options for anticoagulation with the patient. Depending on findings of lower extremity Doppler IVC filter may be an option if she is unable to tolerate anticoagulation. Further recommendations to follow. DISABILITY CASE MANAGER note has been reviewed, I agree with a documented findings and plan of care. Patient was seen and examined.
--- NOTE | 2017-03-12 17:25 | CT ---
EXAMINATION TYPE: CT brain wo con DATE OF EXAM: 03/12/2017 COMPARISON: 09/24/2012 HISTORY: Patient complains of multiple recent seizures. CT DLP: 843 mGycm Automated exposure control for dose reduction was used. FINDINGS: Ventricles and sulci are within normal limits. There is no mass effect nor midline shift. There is no sign of intracranial hemorrhage. The calvarium is intact. IMPRESSION: NEGATIVE CT SCAN OF THE BRAIN. NO CHANGE.
[2017-03-12] MEDS ORDERED: HEPARIN SODIUM,PORCINE 10,000 UNIT/ML 1 ML VIAL IV PRN (17:34)
[2017-03-12 18:17] LABS: Creatine Kinase 106 U/L (30-135)
[2017-03-12 18:31] LABS: Creatine Kinase MB 1.3 ng/mL (0.0-2.4); Troponin I <0.012 ng/mL (0.000-0.034)
--- NOTE | 2017-03-12 19:25 | P.CNNES ---
History of Present Illness Consult date: 03/12/17 Reason for Consult: Patient admitted with pleuritic chest pain and seizures. History of Present Illness: This patient is a 66-year-old right-handed white female who was admitted to hospital today with possible seizure and pleuritic chest pain. According to the patient she was at home and apparently was in the bathroom when she completely passed out. Her heard her fall and hit the door of the bathroom and went to open the door but could not and she was fallen on the floor. He was able to push her side and open the door and when he went in apparently she had another small seizure. Patient has a history of underlying seizure disorder for which she has been taking Keppra 750 mg 1 tablet twice a day. She states she did have a Keppra level done in December which was therapeutic at 26.0. Patient does not miss her dose of Keppra on any particular day. Apparently this seizure was preceded by an aura. She does have an aura typically with her seizures. She did feel the aura in the bathroom prior to collapsing. The patient has not had a seizure since August 2015. She was brought by EMS to the emergency room where she was further evaluated. She did complain of pleuritic chest pain to the ER physician Dr. Royal. She was sent sent for a CTA angiogram for further evaluation as her d-dimer was elevated. CTA angiogram confirmed a positive finding for a pulmonary embolus in the right lower lobe of the pulmonary artery. Patient was started on IV heparin protocol and admitted to the hospital. She was also complaining of pain involving her left arm as well as swelling. She underwent an ultrasound of the left arm which was negative for any evidence of DVT. She also underwent ultrasound of both lower extremities which came back negative for DVT. The patient is now resting comfortably. She still complains of difficulty with pain involving her left arm. She is scheduled to see the orthopedic surgeon Dr. Bullard early next week. Patient states that she was surprised that she may have had a seizure today. She mentions that she is very anabaptism in taking her Keppra on a daily basis. As noted her previous Keppra level was therapeutic which was done in December. The patient has been slightly sleep deprived as she has been in pain not only with the left arm but also the thoracic region of the spine. She has undergone epidural injections in the past. She also has a history of cervical fusion in the past. The patient is now admitted and neurology has been consulted for further evaluation and recommendations. Review of Systems Constitutional: Denies chills, Denies fever Eyes: denies blurred vision, denies pain Ears, nose, mouth and throat: Denies headache, Denies sore throat Cardiovascular: Denies chest pain, Denies shortness of breath Respiratory: Denies cough Gastrointestinal: Denies abdominal pain, Denies diarrhea, Denies nausea, Denies vomiting Genitourinary: Denies dysuria, Denies hematuria Musculoskeletal: Reports neck pain, Reports shooting arm pain, Denies myalgias Musculoskeletal: left: hand swelling Integumentary: Denies pruritus, Denies rash Neurological: Reports convulsions, Reports seizures, Denies numbness, Denies weakness Psychiatric: Denies anxiety, Denies depression Endocrine: Denies fatigue, Denies weight change Past Medical History Past Medical History: Atrial Fibrillation, Asthma, Fibromyalgia, GI Bleed, Hyperlipidemia, Hypertension, Seizure Disorder Additional Past Medical History / Comment(s): Seizure disorder with last seizure 03/12/17, autoimmune dx unknown etiology-worked up at [facility], Pts brother has factor V and from a DVT and pt states she has been tested and does not have it, remote asthma, lower GI bleed r/t pradaxa, IBS, UTIs, UTI with sepsis, osteopenia, degenerative arthritis bilateral hips and spine, herniated disc, chronic back pain, myofascial pain syndrome, edema legs/feet, shingelles x3 History of Any Multi-Drug Resistant Organisms: None Reported Past Surgical History: Appendectomy, Back Surgery, Hysterectomy, Joint Replacement, Orthopedic Surgery Additional Past Surgical History / Comment(s): X4 BACK SX(LAMENTECTOMY X1 AND 3 FUSIONS), PARTIAL HYSTERECTOMY AND THEN PELVIC MASS (BENIGN) REMOVED WITH BILATERAL OVARIES, D&C, UTERINE FIBROIDS REMOVED, TOTAL L HIP ARTHROPLASTY, LT CARPAL TUNNEL, THRASHER NEUROMA LT FOOT, R HEEL BONE SPUR REMOVED, L ELBOW ULNAR RELEASE, COLONOSCOPY-NORMAL, BILATERAL KNEE ARTHROSCOPIES, BACK INJECTIONS. Past Anesthesia/Blood Transfusion Reactions: Motion Sickness, Postoperative Nausea & Vomiting (PONV) Additional Past Anesthesia/Blood Transfusion Reaction / Comment(s): CLAUSTERPHOBIC Smoking Status: Never smoker - Past Family History Father Family Medical History: CVA/TIA, Myocardial Infarction ([place]) Additional Family Medical History / Comment(s): AGE 57 [place]. HAD CVA. Mother Family Medical History: Cancer, Myocardial Infarction ([place]) Additional Family Medical History / Comment(s): LUNG CA. AT 73 FROM [place] THOUGHT CAUSED BY RADIATION [place] FOR LUNG CANCER. Medications and Allergies Home Medications Medication Instructions Recorded Confirmed Type Allopurinol [Zyloprim] 300 mg PO DAILY@1200 08/15/14 03/12/17 History Aspirin 81 mg PO DAILY 08/15/14 03/12/17 History Cyanocobalamin [Vitamin B-12] 1,000 mcg PO DAILY@1200 08/15/14 03/12/17 History Hydrochlorothiazide [Hydrodiuril] 25 mg PO DAILY@1200 08/15/14 03/12/17 History Irbesartan [Avapro] 300 mg PO HS 08/15/14 03/12/17 History L.acidoph/B.long/L.plant/B.lac 1 cap PO DAILY@1200 08/15/14 03/12/17 History [Probiotic Acidophilus Beads] Multivitamin/Iron/Folic Acid 1 tab PO DAILY 08/15/14 03/12/17 History [Centrum Complete Multivit Tab] Niacin [Niaspan] 1,000 mg PO DAILY 08/15/14 03/12/17 History Thornton-3 Fatty Acids/Fish Oil [Fish 1 cap PO BID 08/15/14 03/12/17 History Oil 1,000 mg Softgel] Propafenone [Rythmol] 150 mg PO TID 08/15/14 03/12/17 History Tumeric/Curcumin 1 tab PO DAILY@1200 05/08/15 03/12/17 History Cranberry Fruit Extract [Cranberry] 200 mg PO BID 03/12/17 03/12/17 History Furosemide [Lasix] 20 mg PO HS 03/12/17 03/12/17 History Furosemide [Lasix] 40 mg PO DAILY 03/12/17 03/12/17 History Garlique 1 tab PO DAILY@1200 03/12/17 03/12/17 History Magnesium Oxide [Mag-Ox] 250 mg PO BID 03/12/17 03/12/17 History Multivitamins, Thera [Multivitamin 0.5 tab PO W/SUPPER 03/12/17 03/12/17 History (formulary)] cloNIDine HCL [Catapres] 0.05 mg PO BID 03/12/17 03/12/17 History levETIRAcetam [Keppra] 750 mg PO BID 03/12/17 03/12/17 History Allergies Allergy/AdvReac Type Severity Reaction Status Date / Time celecoxib [From Celebrex] Allergy Severe MUSCLE PAIN Verified 03/12/17 08:21 dabigatran etexilate mesylate Allergy Unknown Verified 03/12/17 08:21 [From Pradaxa] rosuvastatin calcium Allergy Swelling Verified 03/12/17 08:21 [From Crestor] hydromorphone HCl AdvReac Severe SEIZURE Verified 03/12/17 08:21 [From Dilaudid] diclofenac sodium AdvReac GI BLEED Verified 03/12/17 08:21 [From Voltaren] gabapentin [From Neurontin] AdvReac Rash/Hives Verified 03/12/17 08:21 hydrocodone bitartrate AdvReac Nausea & Verified 03/12/17 08:21 [From Vicodin] Vomiting isradipine [From DynaCirc] AdvReac Rash/Hives Verified 03/12/17 08:21 oxycodone HCl AdvReac Nausea & Verified 03/12/17 08:21 [From OxyContin] Vomiting pregabalin [From Lyrica] AdvReac Rash/Hives Verified 03/12/17 08:21 simvastatin [From Zocor] AdvReac Rash/Hives Verified 03/12/17 08:21 Tetanus Vaccines and Toxoid AdvReac Rash/Hives Verified 03/12/17 08:21 [Tetanus Vaccines & Toxoid] tomato Allergy Rash/Hives Uncoded 03/12/17 04:52 dairy products AdvReac Abdominal Uncoded 03/12/17 04:52 Pain Physical Examination - Vital Signs Vital Signs: Vital Signs Temp Pulse Pulse Resp BP BP Pulse Ox 03/12/17 10:15 97.8 F 49 L 16 114/59 100 03/12/17 08:26 97.1 F L 51 L 18 104/57 99 03/12/17 07:46 56 L 18 119/59 98 03/12/17 06:55 52 L 20 108/59 97 03/12/17 06:08 97.3 F L 71 16 115/68 99 03/12/17 05:15 55 L 18 107/56 98 03/12/17 04:49 97.4 F L 50 L 16 92/60 98 Intake and Output 03/12/17 03/12/17 03/12/17 06:59 14:59 22:59 Intake Total 120 299.414 Balance 120 299.414 Intake: Intake, IV Titration 299.414 Amount Heparin Sodium,Porcine/ 299.414 D5w Pmx 25,000 unit In Dextrose/Water 1 500ml. bag @ 18 UNITS/KG/HR 33. 96 mls/hr IV .[id number] [facility] Rx#:[id number] Oral 120 Other: Weight 94.347 kg - Constitutional General appearance: average body habitus, cooperative - EENT EENT: PERRL, mucous membranes moist - Respiratory Respiratory: lungs clear, normal breath sounds - Cardiovascular Cardiovascular: regular rate, normal S1, normal S2 Extremities: no peripheral edema bilaterally - Gastrointestinal Gastrointestinal: normoactive bowel sounds - Integumentary Integumentary: normal - Neurologic Cranial nerve examination: PERRL, EOMI, VFF, V1/V2/V3 grossly intact, face symmetric, tongue midline, intact gag reflex, intact corneal reflex, normal palatal elevation Speech examination: intact Sensorimotor examination: intact Motor examination - right side: 4/5: biceps, triceps, wrist flexion, wrist extension, 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, hip flexors, knee extensors, dorsiflexion, toe extension (EHL) , plantarflexion Motor examination - left side: 3/5: triceps, wrist flexion, wrist extension, 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, 4/5: biceps, hip flexors, knee extensors, dorsiflexion, toe extension (EHL ), plantarflexion Detailed sensory examination: intact Reflex and gait examination: intact Reflexes: 1+: ankle, bicep, knee, tricep - Musculoskeletal Musculoskeletal: no pain - Psychiatric Psychiatric: mood/affect appropriate, cooperative Results - Laboratory Findings CBC and BMP: 03/12/17 05:30 03/12/17 05:30 Abnormal Lab Findings: Abnormal Labs 03/12/17 03/12/17 03/12/17 05:30 05:30 05:30 APTT 21.2 L D-Dimer 4.56 H BUN 18 H Total Protein 6.2 L Urine Appearance Urine Protein Ur Leukocyte Esterase Urine RBC Urine WBC Urine WBC Clumps Urine Mucus 03/12/17 03/12/17 06:54 14:46 APTT 35.5 H D-Dimer BUN Total Protein Urine Appearance Cloudy H Urine Protein 1+ H Ur Leukocyte Esterase Large H Urine RBC 19 H Urine WBC >182 H Urine WBC Clumps Few H Urine Mucus Rare H Assessment and Plan (1) Generalized tonic-clonic seizure Status: Acute Code(s): G40.409 - OTH GENERALIZED EPILEPSY, NOT INTRACTABLE, W/ O STAT EPI (2) Pulmonary embolism Status: Acute Code(s): I26.99 - OTHER PULMONARY EMBOLISM WITHOUT ACUTE COR PULMONALE (3) Afib Status: Acute Code(s): I48.91 - UNSPECIFIED ATRIAL FIBRILLATION (4) Chest pain Status: Acute Code(s): R07.9 - CHEST PAIN, UNSPECIFIED Plan: This patient is a 66-year-old female who was admitted to hospital after having possibly 2 seizures at home. Patient has a history of underlying seizure disorder. She has been taking Keppra 750 mg twice a day. She was in the bathroom and apparently collapsed and had 2 possible seizures. was able to get to assist her and called EMS. She was brought into the emergency room where she was complaining of chest pain. She underwent a CTA angiogram of the chest which came back positive for pulmonary embolus involving the right lung. Patient was started on IV heparin protocol and admitted to the hospital. She was continued on Keppra 750 mg twice a day. Keppra blood level was drawn in the ER at the results are pending at this time. Her neurological examination is nonfocal at this time. She does complain of left arm pain which is to be further evaluated by orthopedic surgery. She underwent ultrasound of the left arm which was negative for DVT. Ultrasound of both lower extremities was negative for DVT. We have recommended routine EEG for further evaluation. We will await her Keppra blood level to return from the laboratory make adjustments as needed. She is to continue on her current dose of Keppra 750 mg twice a day. She is advised of the [place] driving law which states she cannot drive. It is 6 months following her last seizure. She is on IV heparin protocol for further management of her acute pulmonary embolism. We will await further recommendations from cardiology. Overall prognosis at this time remains very guarded. Time with Patient: Greater than 30
[2017-03-12] MEDS: FUROSEMIDE 20 MG TAB PO SCH (21:20)
[2017-03-12] MEDS: LOSARTAN 50 MG TAB PO SCH (21:20)
[2017-03-13] MEDS: HEPARIN SODIUM,PORCINE/D5W PMX 25,000 UNIT in DEXTROSE/WATER 1 500ML.BAG IV SCH ×3 (01:12→16:53)
[2017-03-13] MEDS ORDERED: MELATONIN 5 MG TABLET PO PRN (02:40)
[2017-03-13 06:50] LABS: Basophils # (A) 0.1 k/uL (0-0.2); Basophils % (A) 1 %; CH 33.5; CHCM 34.7; Eosinophils # (A) 0.6 k/uL (0-0.7); Eosinophils % (A) 11 %; HCT 34.6 % (34.0-46.0); HDW 2.78; HGB 11.9 gm/dL (11.4-16.0); Luc # (Auto) 0.18; Luc % (Auto) 3; Lymphocytes # (A) 2.4 k/uL (1.0-4.8); Lymphocytes % (A) 41 %; MCH 33.4 pg (25.0-35.0); MCHC 34.3 g/dL (31.0-37.0); MCV 97.1 fL (80.0-100.0); Mean Platelet Volume 7.8; Monocytes # (A) 0.3 k/uL (0-1.0); Monocytes % (A) 6 %; Neutrophils # (A) 2.2 k/uL (1.3-7.7); Neutrophils % (A) 38 %; RBC 3.56 m/uL (3.80-5.40); RDW 13.5 % (11.5-15.5); WBC 5.7 k/uL (3.8-10.6); WBC (Perox) 6.12
[2017-03-13 06:59] LABS: INR 1.2 (<1.2); Prothrombin Time 11.5 sec (9.0-12.0)
[2017-03-13 07:22] LABS: Partial Thromboplastin Time 159.1 sec (22.0-30.0)
[2017-03-13 07:59] LABS: Cholesterol 153 mg/dL (<200); HDL Cholesterol 68 mg/dL (40-60); Triglycerides 41 mg/dL (<150)
[2017-03-13] MEDS ORDERED: cefTRIAXone 1,000 MG in SODIUM CHLORIDE 0.9% 100 ML IVPB SCH (08:00)
[2017-03-13] MEDS: NIACIN TR 500 MG CAPSULE.ER PO SCH (08:18)
[2017-03-13] MEDS: ASPIRIN 81 MG CHEW PO SCH (08:18)
[2017-03-13] MEDS: MAGNESIUM OXIDE 400 MG TAB PO SCH ×2 (08:18→20:28)
[2017-03-13] MEDS: FUROSEMIDE 40 MG TAB PO SCH (08:18)
[2017-03-13] MEDS: cloNIDine HCL 0.1 MG TAB PO SCH (08:19)
[2017-03-13] MEDS: PROPAFENONE 150 MG TAB PO SCH ×2 (08:19→16:53)
[2017-03-13] MEDS ORDERED: traMADol 50 MG TAB PO PRN (09:00)
--- NOTE | 2017-03-13 09:22 | P.PN ---
Subjective Patient is a 66-year-old female well known to my practice who presented to [facility] emergency room after having 2 seizures at home. Patient states that she felt weak and nauseated she went to the bathroom where she had a seizure she fell to the floor and was unconscious her followed her to the bathroom patient regained consciousness however shortly after she had another episode of loss of consciousness. Patient states that these 2 episodes are similar to previous history of seizures that she had in the past she states that she gets an aura with severe nausea, then she loses consciousness she never has any limb movements. Patient has been followed by Dr. Mujica, she is maintained on Keppra 750 mg twice daily which she has been taking regularly. Patient was brought in to [facility] emergency room, she was complaining of severe left arm pain, d-dimer was elevated at 4.5, CT angiogram of the chest was done and was positive for pulmonary embolism, patient was started on IV heparin and was admitted to telemetry floor. Patient also was complaining of frequency was urination urine analysis was done in the emergency room and revealed evidence of urinary tract infection she was started on IV Rocephin 1 g every 24 hours. 03/13/2017 patient has had no further seizure activity. Denies any chest pain or shortness of breath. She is complaining of left arm and shoulder plain. She was scheduled as outpatient to see Dr. Bullard. Patient has had new pain in this area after a fall and hitting the left shoulder arm. Also her IV did go subcu. IV has been restarted in the other arm. She denies any nausea or vomiting. No bowel movements today. Denies any burning with urination Objective - Vital Signs Vital signs: Vital Signs Temp 97.7 F 03/13/17 08:28 Pulse 52 L 03/13/17 08:28 Resp 18 03/13/17 08:28 BP 98/53 03/13/17 08:28 Pulse Ox 98 03/13/17 08:28 Intake & Output 03/12/17 03/13/17 03/13/17 18:59 06:59 18:59 Intake Total 419.414 464.586 258.12 Output Total 750 Balance 419.414 -285.414 258.12 Weight 94.8 kg Intake: IV 264 Heparin Sodium,Porcine/ 264 D5w Pmx 25,000 unit In Dextrose/Water 1 500ml. bag @ 18 UNITS/KG/HR 33. 96 mls/hr IV .[id number] [facility] Rx#:[id number] Intake, IV Titration 299.414 200.586 258.12 Amount Heparin Sodium,Porcine/ 299.414 200.586 258.12 D5w Pmx 25,000 unit In Dextrose/Water 1 500ml. bag @ 18 UNITS/KG/HR 33. 96 mls/hr IV .[id number] [facility] Rx#:[id number] Oral 120 Output: Urine 750 Other: Voiding Method Toilet Toilet - Exam Head normocephalic Neck supple Lungs clear to auscultation bilaterally no wheezing or crackles Heart regular rate and rhythm S1-S2, no rub or gallop Abdomen is soft nontender nondistended positive bowel sounds no hepatosplenomegaly Extremities no edema lower extremities. Left arm mildly swollen in the upper arm. No evidence of cellulitis. Tender with palpation of the left shoulder and into the left humerus area. Old bruising noted along the lateral aspect of the left humerus at the proximal portion Neuro alert and orientated to 3 - Labs CBC & Chem 7: 03/13/17 06:23 03/12/17 05:30 Labs: Abnormal Lab Results - Last 24 Hours (Table) 03/12/17 03/12/17 03/12/17 Range/Units 05:30 14:46 22:55 RBC (3.80-5.40) m/uL Plt Count (150-450) k/uL INR (<1.2) APTT 21.2 L 35.5 H 100.3 H* (22.0-30.0) sec HDL Cholesterol (40-60) mg/dL 03/13/17 03/13/17 03/13/17 Range/Units 06:23 06:23 06:23 RBC 3.56 L (3.80-5.40) m/uL Plt Count 139 L (150-450) k/uL INR 1.2 H (<1.2) APTT 159.1 H* (22.0-30.0) sec HDL Cholesterol 68 H (40-60) mg/dL Assessment and Plan Plan: #1 2 syncopal episodes with breakthrough seizure: Continue Keppra 750 mg twice a day. Awaiting Keppra level. Patient evaluated by neurology. Has EEG addled for this morning #2 pulmonary embolism, d-dimer was elevated at 4.56, CT angiogram of the chest was positive for pulmonary embolus in the right lower lobe pulmonary artery, patient was started on IV heparin. Bilateral Dopplers of the lower extremities negative for DVT left arm Doppler negative for DVT area await further anticoagulation recommendations per cardiology and pulmonary. Echo shows an EF of 55-60% with LA severely dilated #3 urinary tract infection patient was started on IV Rocephin 1 g every 24 hours. And culture pending #4 underlying history of hypertension continue was current medications #4 underlying history of hyperlipidemia maintained on Niaspan continue #5 underlying history of gout maintained on allopurinol continue #6 underlying history of paroxysmal atrial fibrillation #7 underlying history of autoimmune disorder, not clearly identified followed at [facility] also diagnosed then with fibromyalgia #8 previous history of gastrointestinal bleeding #9 left shoulder and arm pain: Consult Dr. Bullard. Start [place] 5/325 one every 4 hours as needed for pain. #10 2.5 cm thyroid nodule noted on left arm Doppler ultrasound. Check thyroid studies I performed an examination of the patient and discussed their management with the physician [employer]. I have reviewed the Physician [employer]'s notes and agree with the documented findings and plan of care
[2017-03-13] MEDS: ALLOPURINOL 300 MG TAB PO SCH (11:48)
[2017-03-13] MEDS: LACTOBACILLUS ACIDOPH & BULGAR 1 EACH PACKET PO SCH (11:48)
[2017-03-13] MEDS: MULTIVITAMINS, THERA 1 EACH TAB PO SCH (11:48)
[2017-03-13] MEDS: CYANOCOBALAMIN 500 MCG TAB PO SCH (11:48)
[2017-03-13] MEDS: HYDROCHLOROTHIAZIDE 25 MG TAB PO SCH (11:48)
[2017-03-13] MEDS ORDERED: TUMERIC PO SCH (12:00)
[2017-03-13] MEDS ORDERED: GARLIQUE PO SCH (12:00)
[2017-03-13] MEDS ORDERED: CURCUMIN PO SCH (12:00)
--- NOTE | 2017-03-13 13:24 | XR ---
EXAMINATION TYPE: XR humerus LT DATE OF EXAM: 03/13/2017 COMPARISON: NONE HISTORY: Seizure fall pain TECHNIQUE: 2 view left humerus FINDINGS: No acute fractures evident. Joint spaces appear preserved. Soft tissues are unremarkable. IMPRESSION: 1. Normal 2 view left humerus
--- NOTE | 2017-03-13 13:27 | XR ---
EXAMINATION TYPE: XR shoulder complete LT DATE OF EXAM: 03/13/2017 COMPARISON: NONE HISTORY: Pain, seizure TECHNIQUE: Shoulder examined in 3 FINDINGS: The humeral head articulates with the glenoid. The acromio-clavicular junction is normal. No acute fractures or dislocations are evident. A follow up study can be performed 7-10 days from acute trauma for continued pain. IMPRESSION: 1. Normal Shoulder
--- NOTE | 2017-03-13 13:27 | P.PN ---
Subjective Principal diagnosis: Pulmonary embolism Is a 66-year-old female patient who presented to the emergency department earlier this morning because of pleuritic chest pain along the left chest area. The pain was sharp, worse with deep breathing and was radiating towards her left axillary. No anterior chest pain. No angina. No nausea. No vomiting. No hemoptysis. No swelling in the lower extremities. This patient has been having difficulties with mobility. She has had previous evidence spine surgery and lumbar fusion. She was being considered for an epidural shots by the pain specialist and she had been having some weakness in the left lower extremity and this has somewhat limited her ability to walk. Earlier this morning, the patient got up at around 4:30 AM to go to the bathroom and she experienced the pain. Subsequently she has also seizure episode. She is known to have epilepsy however she has been seizure-free for many years. She has been on Keppra without any complications and the patient was successfully treated. Following the seizure, the patient had a fall and some limited trauma to her left forehead. She came into the hospital with CT angios the chest was done and the examination was positive for pulmonary embolism in the right lower lobe pulmonary artery. Interestingly the left pulmonary artery branches were clear of any pulmonary artery filling defects. 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 Pain. The patient denies having any personal of DVT or pulmonary embolism. No personal history. No history of malignancy. Her brother apparently has a factor V Leyden deficiency and had complications of DVT. No recent orthopedic surgery. She had that and ulnar nerve release approximately 6 months ago and it was only orthopedic surgeons that was done recently. She was also treated for a urinary tract infection with Bactrim. The patient is seen again today 03/13/2017 on the selective care unit. She is awake and alert in no acute distress. Her main complaints today are that of left axillary shoulder and upper arm discomfort. She denies any worsening shortness of breath, cough or congestion. She is maintaining good O2 saturations in the upper 90s on room air. She is afebrile. Hemodynamically stable. She is continued on a heparin drip for now. No significant pain on inhalation. She's had a lot of musculoskeletal type pain. Orthopedics has been consulted. Objective - Vital Signs Vital signs: Vital Signs Temp 97.8 F 03/13/17 11:52 Pulse 52 L 03/13/17 11:52 Resp 18 03/13/17 11:52 BP 101/55 03/13/17 11:52 Pulse Ox 97 03/13/17 11:52 Intake & Output 03/12/17 03/13/17 03/13/17 18:59 06:59 18:59 Intake Total 419.414 464.586 438.12 Output Total 750 Balance 419.414 -285.414 438.12 Weight 94.8 kg Intake: IV 264 Heparin Sodium,Porcine/ 264 D5w Pmx 25,000 unit In Dextrose/Water 1 500ml. bag @ 18 UNITS/KG/HR 33. 96 mls/hr IV .[id number] [facility] Rx#:[id number] Intake, IV Titration 299.414 200.586 258.12 Amount Heparin Sodium,Porcine/ 299.414 200.586 258.12 D5w Pmx 25,000 unit In Dextrose/Water 1 500ml. bag @ 18 UNITS/KG/HR 33. 96 mls/hr IV .[id number] [facility] Rx#:[id number] Oral 120 180 Output: Urine 750 Other: Voiding Method Toilet Toilet - Exam The patient appeared well nourished and normally developed. Vital signs as documented. Head exam is unremarkable. No scleral icterus or corneal arcus noted. Neck is without jugular venous distension, thyromegaly, or carotid bruits. Carotid upstrokes are brisk bilaterally. Lungs are clear to auscultation and percussion. Cardiac exam reveals the PMI to be normally sized and situated. Rhythm is regular. First and second heart sounds normal. No murmurs, rubs or gallops. Abdominal exam reveals normal bowel sounds, no masses , no organomegaly and no aortic enlargement. Extremities are nonedematous and both femoral and pedal pulses are normal. She does have complaints of pain in the left axillary region, left shoulder and left upper arm. Doppler negative for DVT. - Labs CBC & Chem 7: 03/13/17 06:23 03/12/17 05:30 Labs: Abnormal Lab Results - Last 24 Hours (Table) 03/12/17 03/12/17 03/13/17 Range/Units 14:46 22:55 06:23 RBC 3.56 L (3.80-5.40) m/uL Plt Count 139 L (150-450) k/uL INR (<1.2) APTT 35.5 H 100.3 H* (22.0-30.0) sec HDL Cholesterol (40-60) mg/dL 03/13/17 03/13/17 Range/Units 06:23 06:23 RBC (3.80-5.40) m/uL Plt Count (150-450) k/uL INR 1.2 H (<1.2) APTT 159.1 H* (22.0-30.0) sec HDL Cholesterol 68 H (40-60) mg/dL Microbiology - Last 24 Hours (Table) 03/13/17 06:55 Urine Culture - Preliminary Urine,Clean Catch Assessment and Plan Plan: Assessment 1 acute pleuritic left-sided chest pain, most likely in the setting of a pulmonary embolism. Interestingly, the filling defects were seen in the right compared to the left and the patient has filling defects of the right lower lobe pulmonary artery branches. This does not rule out the possibility of embolization to the left. Dopplers of the lower extremities are negative . 2 questionable family history of factor V Leiden 3 epilepsy with breakthrough seizures 4 paroxysmal atrial fibrillation on no anticoagulants 5 previous history of GI bleed currently inactive and stable hemoglobin is at 11.9 6 difficulty with mobility and gait and the patient has been having left lower extremity weakness and she's been essentially sedentary 7 cervical and lumbar degenerative disc disease with previous surgeries and fusions and multilevel laminectomy 8 fibromyalgia 9 hyperlipidemia 10 hypertension 11 bronchial asthma 12 gout 13 question history of autoimmune disease has not been completely specified 14 significant left upper extremity discomfort Plan: The patient was seen and evaluated by Dr. Mrea. She is stable from the pulmonary standpoint. We'll continue with IV heparin for now. We'll convert her to oral agent after orthopedics sees her and assure no intervention needed regarding the left upper extremity pain. We will continue to follow.
[2017-03-13] MEDS: HYDROcodone/APAP 5-325MG 1 EACH TAB PO PRN (13:33)
--- NOTE | 2017-03-13 14:40 | P.PN ---
Subjective This is a pleasant 66-year-old female patient who follows with Dr. Nicole in the office. She has a known history of atrial fibrillation, GI bleed on pradaxa , seizure disorder and hypertension. Presented to the emergency department with complaints of left sided mid axillary pain and left arm pain followed by a wave of nausea and loss of consciousness. Patient believes she may have had a seizure however this was unwitnessed. Her didn't witness however a second loss of consciousness which did appear to be seizure-like activity. Upon presentation, D dimer was found to be elevated and a CT of the chest showed right lower lobe pulmonary artery embolism. Troponins have been negative 3. EKG showed sinus bradycardia with bundle branch block. Patient denies any travel since december at which time she flew home from [place]. She denies any complaints of calf pain redness or warmth. She's had no complaints of shortness of breath and no right-sided chest pain. Upon examination, she is resting comfortably in bed. She denies any further complaints of chest discomfort. 2-D echo with Doppler showed normal LV systolic function without RV enlargement. Bilateral lower extremity venous Doppler and left upper extremity venous Doppler were negative for DVTs. She remained on IV heparin at this time. Objective - Vital Signs Vital signs: Vital Signs Temp 97.8 F 03/13/17 11:52 Pulse 52 L 03/13/17 11:52 Resp 18 03/13/17 11:52 BP 101/55 03/13/17 11:52 Pulse Ox 97 03/13/17 11:52 Intake & Output 03/12/17 03/13/17 03/13/17 18:59 06:59 18:59 Intake Total 419.414 464.586 438.12 Output Total 750 Balance 419.414 -285.414 438.12 Weight 94.8 kg Intake: IV 264 Heparin Sodium,Porcine/ 264 D5w Pmx 25,000 unit In Dextrose/Water 1 500ml. bag @ 18 UNITS/KG/HR 33. 96 mls/hr IV .[id number] [facility] Rx#:[id number] Intake, IV Titration 299.414 200.586 258.12 Amount Heparin Sodium,Porcine/ 299.414 200.586 258.12 D5w Pmx 25,000 unit In Dextrose/Water 1 500ml. bag @ 18 UNITS/KG/HR 33. 96 mls/hr IV .[id number] [facility] Rx#:[id number] Oral 120 180 Output: Urine 750 Other: Voiding Method Toilet Toilet - Exam PHYSICAL EXAMINATION: HEENT: Head is atraumatic, normocephalic. Pupils equal, round. Neck is supple. There is no elevated jugular venous pressure. HEART EXAMINATION: Heart sounds regular, S1 and S2 normal with a systolic murmur. CHEST EXAMINATION: Lungs are clear to auscultation and precussion. No chest wall tenderness is noted on palpation or with deep breathing. ABDOMEN: Soft, nontender. Bowel sounds are heard. No organomegaly noted. EXTREMITIES: 2+ peripheral pulses with no evidence of peripheral edema and no calf tenderness noted. NEUROLOGIC patient is awake, alert and oriented x3. - Labs CBC & Chem 7: 03/13/17 06:23 03/12/17 05:30 Labs: Abnormal Lab Results - Last 24 Hours (Table) 03/12/17 03/12/17 03/13/17 Range/Units 14:46 22:55 06:23 RBC 3.56 L (3.80-5.40) m/uL Plt Count 139 L (150-450) k/uL INR (<1.2) APTT 35.5 H 100.3 H* (22.0-30.0) sec HDL Cholesterol (40-60) mg/dL 03/13/17 03/13/17 Range/Units 06:23 06:23 RBC (3.80-5.40) m/uL Plt Count (150-450) k/uL INR 1.2 H (<1.2) APTT 159.1 H* (22.0-30.0) sec HDL Cholesterol 68 H (40-60) mg/dL Microbiology - Last 24 Hours (Table) 03/13/17 06:55 Urine Culture - Preliminary Urine,Clean Catch Assessment and Plan Plan: Assessment and plan #1 paroxysmal atrial flutter, not previously on anticoagulation due to GI bleed while on Pradaxa #2 chest discomfort, troponins negative 3 #3 evidence of PE on CTA #4 seizure disorder #5 loss of consciousness, likely seizure activity. From cardiology's perspective, computed tomography scan and echocardiogram were reviewed, patient does not likely have a large PE that would cause loss of consciousness. We believe loss of consciousness was from seizure activity. We will however start the patient on a liquid starting tomorrow. Continue IV heparin at this time. Further recommendations to follow. LABOR/EXCAVATOR note has been reviewed, I agree with a documented findings and plan of care. Patient was seen and examined.
--- NOTE | 2017-03-13 15:29 | P.CNOR ---
History of Present Illness - [facility] Consult date: 03/13/17 Consult reason: joint pain History of present illness: This is a 66-year-old female who was seen and evaluated today [facility] Roa. Orthopedics was counseled to due to right upper extremity pain, involving the shoulder and upper arm. Patient was brought to the hospital yesterday by her due to increasing pain in the arm along with 2 recent seizures. Patient has a history of chronic seizures, last being in August 2015 which is managed with Keppra. The procedure was now visualized, the second suture was visualized. After the procedure, the patient was found on the floor. Upon arrival to the hospital, multiple imaging and lab tests were done. It was determined that the patient had a right-sided pulmonary embolism. Patient was admitted to the hospital at that point, with internal medicine, pulmonology, cardiology, neurology and orthopedics consulted. Patient states that the pain in the left shoulder/axillary region has been present for about 6-8 weeks with minimal discomfort. She states over this past week the pain has become a lot more severe. She has seen Dr. Bullard from [facility] in the past for her left shoulder, I was told via the nursing staff he is unavailable at this time. Patient also has a orthopedic team in [place], she lives there for half of the year. She's had a total hip replacement done there, her most recent surgery was a cubital tunnel release on her left elbow this past September. She states that the discomfort she was having at that time is different than what she is feeling now. She states that last fall Dr. Bullard ordered a few different MRI of the left shoulder region, she was diagnosed with a lipoma in that region. No surgical intervention was ever done. She describes the pain as sharp and an exact point. She has also noticed spasming throughout that arm. She notes since being in the hospital, they've had issues with the IVs in the left arm, which has left her with a lot of swelling and ecchymosis in the biceps region. She denies any pain involving the hand or wrist on the left side, she denies any left shoulder pain. She denies any new onset cervical pain, she has a history of cervical fusion. Besides the most recent seizure with likely fall, she has had no other traumatic event involving the left shoulder. She is not altered her physical activity in the last 6-8 weeks. She denies any recent fever, night sweats or unexpected weight loss. Patient has a rather complicated medical history, including fibromyalgia and an autoimmune disorder of unknown etiology. She sees a specialist at the [facility] once a year. She describes disease is developing small nodules along her ribs, but has never had any surgical intervention. She does see a massage therapist and [facility] Palafox and also in [place] helped with her fibromyalgia. She's been seen and evaluated by rheumatology in the past. She has multiple medication ALLERGIES, including maintenance anti-inflammatories and narcotics. Patient also sees Dr. Amador at [facility] for epidural spinal injections, she states the most recent series is done of the T11 -T12 region. Review of Systems Constitutional: Reports as per HPI Past Medical History Past Medical History: Atrial Fibrillation, Asthma, Fibromyalgia, GI Bleed, Hyperlipidemia, Hypertension, Seizure Disorder Additional Past Medical History / Comment(s): Seizure disorder with last seizure 03/12/17, autoimmune dx unknown etiology-worked up at [facility], Pts brother has factor V and from a DVT and pt states she has been tested and does not have it, remote asthma, lower GI bleed r/t pradaxa, IBS, UTIs, UTI with sepsis, osteopenia, degenerative arthritis bilateral hips and spine, herniated disc, chronic back pain, myofascial pain syndrome, edema legs/feet, shingelles x3 History of Any Multi-Drug Resistant Organisms: None Reported Past Surgical History: Appendectomy, Back Surgery, Hysterectomy, Joint Replacement, Orthopedic Surgery Additional Past Surgical History / Comment(s): X4 BACK SX(LAMENTECTOMY X1 AND 3 FUSIONS), PARTIAL HYSTERECTOMY AND THEN PELVIC MASS (BENIGN) REMOVED WITH BILATERAL OVARIES, D&C, UTERINE FIBROIDS REMOVED, TOTAL L HIP ARTHROPLASTY, LT CARPAL TUNNEL, THRASHER NEUROMA LT FOOT, R HEEL BONE SPUR REMOVED, L ELBOW ULNAR RELEASE, COLONOSCOPY-NORMAL, BILATERAL KNEE ARTHROSCOPIES, BACK INJECTIONS. Past Anesthesia/Blood Transfusion Reactions: Motion Sickness, Postoperative Nausea & Vomiting (PONV) Additional Past Anesthesia/Blood Transfusion Reaction / Comm: CLAUSTERPHOBIC Smoking Status: Never smoker - Past Family History Father Family Medical History: CVA/TIA, Myocardial Infarction ([place]) Additional Family Medical History / Comment(s): AGE 57 [place]. HAD CVA. Mother Family Medical History: Cancer, Myocardial Infarction ([place]) Additional Family Medical History / Comment(s): LUNG CA. AT 72 FROM [place] THOUGHT CAUSED BY RADIATION [place] FOR LUNG CANCER. Medications and Allergies Home Medications Medication Instructions Recorded Confirmed Type Allopurinol [Zyloprim] 300 mg PO DAILY@1200 08/15/14 03/12/17 History Aspirin 81 mg PO DAILY 08/15/14 03/12/17 History Cyanocobalamin [Vitamin B-12] 1,000 mcg PO DAILY@1200 08/15/14 03/12/17 History Hydrochlorothiazide [Hydrodiuril] 25 mg PO DAILY@1200 08/15/14 03/12/17 History Irbesartan [Avapro] 300 mg PO HS 08/15/14 03/12/17 History L.acidoph/B.long/L.plant/B.lac 1 cap PO DAILY@1200 08/15/14 03/12/17 History [Probiotic Acidophilus Beads] Multivitamin/Iron/Folic Acid 1 tab PO DAILY 08/15/14 03/12/17 History [Centrum Complete Multivit Tab] Niacin [Niaspan] 1,000 mg PO DAILY 08/15/14 03/12/17 History Wayne-3 Fatty Acids/Fish Oil [Fish 1 cap PO BID 08/15/14 03/12/17 History Oil 1,000 mg Softgel] Propafenone [Rythmol] 150 mg PO TID 08/15/14 03/12/17 History Tumeric/Curcumin 1 tab PO DAILY@1200 05/08/15 03/12/17 History Cranberry Fruit Extract [Cranberry] 200 mg PO BID 03/12/17 03/12/17 History Furosemide [Lasix] 20 mg PO HS 03/12/17 03/12/17 History Furosemide [Lasix] 40 mg PO DAILY 03/12/17 03/12/17 History Garlique 1 tab PO DAILY@1200 03/12/17 03/12/17 History Magnesium Oxide [Mag-Ox] 250 mg PO BID 03/12/17 03/12/17 History Multivitamins, Thera [Multivitamin 0.5 tab PO W/SUPPER 03/12/17 03/12/17 History (formulary)] cloNIDine HCL [Catapres] 0.05 mg PO BID 03/12/17 03/12/17 History levETIRAcetam [Keppra] 750 mg PO BID 03/12/17 03/12/17 History Allergies Allergy/AdvReac Type Severity Reaction Status Date / Time celecoxib [From Celebrex] Allergy Severe MUSCLE PAIN Verified 03/12/17 08:21 dabigatran etexilate mesylate Allergy Unknown Verified 03/12/17 08:21 [From Pradaxa] rosuvastatin calcium Allergy Swelling Verified 03/12/17 08:21 [From Crestor] hydromorphone HCl AdvReac Severe SEIZURE Verified 03/12/17 08:21 [From Dilaudid] diclofenac sodium AdvReac GI BLEED Verified 03/12/17 08:21 [From Voltaren] gabapentin [From Neurontin] AdvReac Rash/Hives Verified 03/12/17 08:21 hydrocodone bitartrate AdvReac Nausea & Verified 03/12/17 08:21 [From Vicodin] Vomiting isradipine [From DynaCirc] AdvReac Rash/Hives Verified 03/12/17 08:21 oxycodone HCl AdvReac Nausea & Verified 03/12/17 08:21 [From OxyContin] Vomiting pregabalin [From Lyrica] AdvReac Rash/Hives Verified 03/12/17 08:21 simvastatin [From Zocor] AdvReac Rash/Hives Verified 03/12/17 08:21 Tetanus Vaccines and Toxoid AdvReac Rash/Hives Verified 03/12/17 08:21 [Tetanus Vaccines & Toxoid] tomato Allergy Rash/Hives Uncoded 03/12/17 04:52 dairy products AdvReac Abdominal Uncoded 03/12/17 04:52 Pain Physical Examination Left upper extremity: There are no obvious open lesions or sores throughout the upper extremity. There is notable soft tissue swelling and ecchymosis present from the more proximal forearm to the bicep, noted more on the medial aspect. She is nontender with palpation throughout most of the shoulder, including the clavicle, AC joint, glenohumeral joint line, subacromial space, proximal humerus , radius and ulna, hand and wrist. Mild tenderness present with palpation throughout the cervical spine and into the paravertebral muscles, she states is chronic. Tenderness with palpation noted in the areas of soft tissue swelling around the elbow. Point tenderness was also reproduced in that area and the left axillary region. I was unable to appreciate any soft tissue masses or fluctuance in this region. Range of motion of the upper extremity is slightly limited due to the pain in the elbow along with the axillary pain. She is able to elevate and abduct the shoulder past 90 with minimal difficulty. Flexion of the elbow does reproduce some pain, she can extend fully. Pronation and supination at the forearm is intact. Extension and flexion at the wrist are intact. Weakness noted with biceps strength testing, likely due to swelling and discomfort. Her sensory exam to light touch throughout the extremity is intact. Her radial pulses 2+ Results - Labs Labs: Abnormal Lab Results - Last 24 Hours (Table) 03/12/17 03/12/17 03/13/17 Range/Units 14:46 22:55 06:23 RBC 3.56 L (3.80-5.40) m/uL Plt Count 139 L (150-450) k/uL INR (<1.2) APTT 35.5 H 100.3 H* (22.0-30.0) sec HDL Cholesterol (40-60) mg/dL 03/13/17 03/13/17 Range/Units 06:23 06:23 RBC (3.80-5.40) m/uL Plt Count (150-450) k/uL INR 1.2 H (<1.2) APTT 159.1 H* (22.0-30.0) sec HDL Cholesterol 68 H (40-60) mg/dL Microbiology - Last 24 Hours (Table) 03/13/17 06:55 Urine Culture - Preliminary Urine,Clean Catch H & H 03/12/17 03/13/17 Range/Units 05:30 06:23 Hgb 13.0 11.9 (11.4-16.0) gm/dL Hct 37.6 34.6 (34.0-46.0) % Coagulation 03/12/17 03/13/17 Range/Units 05:30 06:23 INR 1.1 1.2 H (<1.2) Result Diagrams: 03/13/17 06:23 03/12/17 05:30 - Diagnostic results Shoulder x-ray: report reviewed, image reviewed Assessment and Plan Plan: Imaging: Multiple views of the left shoulder and humerus were obtained. Images demonstrated no acute fractures or dislocations. Mild to moderate arthritic changes noted at the AC joint. Glenohumeral joint remains intact with no significant osteoarthritic changes. Assessment: 1. Left shoulder/axillary pain 2. History of cervical fusion 3. History of left cubital tunnel release 4. Fibromyalgia 5. Autoimmune disease of unknown etiology 6. Recent seizure with fall 7. Pulmonary embolism 8. Other medical comorbidities Plan: I was able to discuss this case, including both physical exam findings and imaging studies with Dr. De Paz. No orthopedic surgical intervention needed at this time. Etiology of this left axillary/shoulder pain is undetermined at this time. Due to the patient's history, including both cervical fusion, fibromyalgia, autoimmune disease, and most recent seizure and fall it is very difficult to determine exact cause. Taking into consideration her medical history, this is likely neuromuscular related. No further inpatient imaging studies needed at this time. We would be willing to see the patient in the outpatient setting for further workup and evaluation. Patient also has the option to follow-up with her doctors at [facility] for further evaluation Will try Flexeril 10 mg for symptomatic relief, avoid narcotics due to multiple allergies Other medical specialty recommendations We'll be available for any further questions concerning this patient Time with Patient: Greater than 30
--- NOTE | 2017-03-13 16:38 | P.PN ---
Subjective This patient is 66-year-old female who was admitted to hospital with possible breakthrough seizures. She has long-standing history of seizure disorder. She has been taking Keppra 750 mg twice a day. On day of admission she had a possible seizure in the bathroom. She had a second seizure that was witnessed by her . She was brought into the emergency room subsequent admitted to Hospital. She was found to have evidence of a pulmonary embolism and is being followed by cardiology and pulmonary medicine. She has been started on IV heparin protocol. Patient underwent routine EEG today for further evaluation of seizure disorder. Her EEG was reviewed today and is normal for her age. There is no evidence of any epileptiform discharges. Her Keppra blood level is still pending this morning. She seems to be doing fairly well and had no further seizure episodes since admission to the hospital. Patient continues to have left shoulder and arm pain. She was seen by orthopedic surgery and they have prescribed Flexeril for the patient. X-rays have been ordered as well. We will continue close neurological follow-up with the patient during this admission. Objective - Vital Signs Vital signs: Vital Signs Temp 97.8 F 03/13/17 11:52 Pulse 52 L 03/13/17 11:52 Resp 18 03/13/17 11:52 BP 101/55 03/13/17 11:52 Pulse Ox 97 03/13/17 11:52 Intake & Output 03/12/17 03/13/17 03/13/17 18:59 06:59 18:59 Intake Total 419.414 464.586 438.12 Output Total 750 Balance 419.414 -285.414 438.12 Weight 94.8 kg Intake: IV 264 Heparin Sodium,Porcine/ 264 D5w Pmx 25,000 unit In Dextrose/Water 1 500ml. bag @ 18 UNITS/KG/HR 33. 96 mls/hr IV .[id number] CRIS Rx#:[id number] Intake, IV Titration 299.414 200.586 258.12 Amount Heparin Sodium,Porcine/ 299.414 200.586 258.12 D5w Pmx 25,000 unit In Dextrose/Water 1 500ml. bag @ 18 UNITS/KG/HR 33. 96 mls/hr IV .[id number] CRIS Rx#:[id number] Oral 120 180 Output: Urine 750 Other: Voiding Method Toilet Toilet - Exam Physical examination: PHYSICAL EXAMINATION: Patient is resting comfortably in bed. VITAL SIGNS: Blood pressure is [101/55]. Heart rate is [52]. Respiration is [16] . Temperature is [97.8]. HEENT: Head is atraumatic, neck is supple, there were no carotid bruits. CHEST: Lungs are clear to auscultation and percussion. CARDIAC: S1, S2 normal rate and rhythm. There is no murmur. ABDOMEN: Soft and nontender. Bowel sounds are present. EXTREMITIES: There is no pedal edema. Peripheral pulses are present. Neurological examination: Patient's neurological examination is unchanged from yesterday. - Labs CBC & Chem 7: 03/13/17 06:23 03/12/17 05:30 Labs: Abnormal Lab Results - Last 24 Hours (Table) 03/12/17 03/12/17 03/13/17 Range/Units 14:46 22:55 06:23 RBC 3.56 L (3.80-5.40) m/uL Plt Count 139 L (150-450) k/uL INR (<1.2) APTT 35.5 H 100.3 H* (22.0-30.0) sec HDL Cholesterol (40-60) mg/dL 03/13/17 03/13/17 Range/Units 06:23 06:23 RBC (3.80-5.40) m/uL Plt Count (150-450) k/uL INR 1.2 H (<1.2) APTT 159.1 H* (22.0-30.0) sec HDL Cholesterol 68 H (40-60) mg/dL Microbiology - Last 24 Hours (Table) 03/13/17 06:55 Urine Culture - Preliminary Urine,Clean Catch Assessment and Plan (1) Generalized tonic-clonic seizure Status: Acute Code(s): G40.409 - OTH GENERALIZED EPILEPSY, NOT INTRACTABLE, W/ O STAT EPI (2) Pulmonary embolism Status: Acute Code(s): I26.99 - OTHER PULMONARY EMBOLISM WITHOUT ACUTE COR PULMONALE (3) Afib Status: Acute Code(s): I48.91 - UNSPECIFIED ATRIAL FIBRILLATION (4) Chest pain Status: Acute Code(s): R07.9 - CHEST PAIN, UNSPECIFIED Plan: This patient is a 66-year-old female who was admitted to hospital with possible breakthrough seizures. She was at home and had 2 events at home causing her to fall and become unresponsive for a short period of time. She has a known history of seizure disorder and has been taking Keppra at home on a regular basis. Her Keppra blood level is still pending this morning. She underwent a routine EEG today which was reviewed and is normal for age. There is no evidence of any epileptiform discharges. We are waiting her Keppra blood level to return from the laboratory and it will be adjusted if necessary. Patient is being treated for acute pulmonary embolism. She is also having significant left arm and shoulder pain. Orthopedic surgery is following the patient now. Overall prognosis at this time remains guarded. We will continue to monitor her neurological condition closely during this admission. All test results were discussed today with the patient in detail. Her overall prognosis at this time remains guarded.
[2017-03-13] MEDS: CYCLOBENZAPRINE 10 MG TAB PO PRN (16:59)
[2017-03-13] MEDS: FUROSEMIDE 20 MG TAB PO SCH (20:29)
[2017-03-13] MEDS: LOSARTAN 50 MG TAB PO SCH (20:29)
[2017-03-13] MEDS ORDERED: MELATONIN 5 MG TABLET PO SCH (21:00)
[2017-03-14] MEDS: HYDROcodone/APAP 5-325MG 1 EACH TAB PO PRN (00:29)
[2017-03-14] MEDS: PROPAFENONE 150 MG TAB PO SCH ×2 (00:29→07:40)
[2017-03-14] MEDS: CYCLOBENZAPRINE 10 MG TAB PO PRN (00:30)
[2017-03-14 02:14] VITALS: RESP 18
--- NOTE | 2017-03-14 06:08 | EEG ---
DATE OF SERVICE: 03/13/2017 ELECTROENCEPHALOGRAPHIC EXAMINATION REPORT INDICATION FOR EXAMINATION: This patient is a 66-year-old female with history of seizure disorder. Patient with break-through seizures and new finding of pulmonary embolus. AGE: 66. EEG FINDINGS: A routine 21-channel awake, digital EEG recording was accomplished utilizing the 10-20 international system with bipolar and referential montages. The background activity in the most alert resting state consists of a low to medium amplitude fairly well-developed and well-sustained 7 -8 Hz activity over the posterior head regions. This posterior rhythm attenuates to eye opening. There is a small amount of low amplitude 18-20 Hz beta activity seen maximally over the anterior head regions. Muscle and movement artifact was observed on a few occasions during the tracing. Hyperventilation was not performed. Photic stimulation at flash frequencies of 2 -30 Hz produced a good symmetrical occipital driving response. No epileptiform discharges were seen. IMPRESSION: This EEG is normal for the patient's age. The EEG failed to reveal any focal, lateralized or epileptiform abnormalities. Clinical correlation is recommended. [facility]
[2017-03-14 06:40] LABS: CH 33.7; CHCM 35.1; HCT 36.5 % (34.0-46.0); HDW 2.81; HGB 12.8 gm/dL (11.4-16.0); MCH 33.6 pg (25.0-35.0); MCHC 34.9 g/dL (31.0-37.0); MCV 96.3 fL (80.0-100.0); Mean Platelet Volume 8.1; RBC 3.79 m/uL (3.80-5.40); RDW 13.8 % (11.5-15.5); WBC 6.2 k/uL (3.8-10.6); WBC (Perox) 6.21
[2017-03-14 06:45] LABS: INR 1.1 (<1.2); Partial Thromboplastin Time 66.1 sec (22.0-30.0)
[2017-03-14 06:57] LABS: Add Differential Manual Differential
[2017-03-14 07:03] LABS: AST 24 U/L (14-36); Anion Gap 9 mmol/L; Blood Urea Nitrogen 15 mg/dL (7-17); Calcium 9.2 mg/dL (8.4-10.2); Carbon Dioxide 26 mmol/L (22-30); Chloride 106 mmol/L (98-107); Glucose 88 mg/dL (74-99); Non-African American GFR(MDRD) >60 (>60 ml/min/1.73 sqM); Potassium 3.9 mmol/L (3.5-5.1); Sodium 141 mmol/L (137-145); Total Bilirubin 0.3 mg/dL (0.2-1.3); Total Protein 5.9 g/dL (6.3-8.2)
[2017-03-14 07:04] LABS: Manual Review Performed; Nucleated Red Blood Cells 0 /100 WBC (0-0); Total Cells Counted 100
[2017-03-14] MEDS: CYANOCOBALAMIN 500 MCG TAB PO SCH ×2 (07:40→07:41)
[2017-03-14] MEDS: MAGNESIUM OXIDE 400 MG TAB PO SCH (07:40)
[2017-03-14] MEDS: ASPIRIN 81 MG CHEW PO SCH (07:40)
[2017-03-14] MEDS: FUROSEMIDE 40 MG TAB PO SCH (07:40)
[2017-03-14] MEDS: NIACIN TR 500 MG CAPSULE.ER PO SCH (07:43)
[2017-03-14 07:47] LABS: ALT 32 U/L (9-52); Alkaline Phosphatase 79 U/L (38-126)
[2017-03-14 07:50] VITALS: PULSE 59; TEMP 97.8
[2017-03-14] MEDS ORDERED: APIXABAN 5 MG TAB PO SCH (09:00)
[2017-03-14] MEDS ORDERED: FAMOTIDINE 20 MG TAB PO SCH (09:00)
[2017-03-14] MEDS: HYDROCHLOROTHIAZIDE 25 MG TAB PO SCH (11:29)
[2017-03-14] MEDS: MULTIVITAMINS, THERA 1 EACH TAB PO SCH (11:29)
[2017-03-14] MEDS: ALLOPURINOL 300 MG TAB PO SCH (11:29)
[2017-03-14] MEDS: LACTOBACILLUS ACIDOPH & BULGAR 1 EACH PACKET PO SCH (11:29)
[2017-03-14 11:35] VITALS: BP 97/59
--- NOTE | 2017-03-14 12:14 | P.DS ---
Providers Date of admission: 03/12/17 07:55 Expected date of discharge: 03/14/17 Attending physician: Kim Becerril Consults: 03/12/17 07:55 Consult Physician Routine Consulting Provider: Osei Mera Consult Reason/Comments: pe Do you want consulting provider notified?: Yes Consult Physician Urgent Consulting Provider: Kathe Torres Consult Reason/Comments: cp Do you want consulting provider notified?: Yes 03/12/17 12:44 Consult Physician Routine Consulting Provider: Alivia Barajas Consult Reason/Comments: seizure Do you want consulting provider notified?: Yes 03/13/17 09:14 Consult Physician Routine Consulting Provider: Alex De Paz Consult Reason/Comments: Left shoulder and arm pain Do you want consulting provider notified?: Yes Primary care physician: Kim Becerril [facility] Course: Discharge diagnosis #1 Two syncopal episodes secondary to breakthrough seizure: Continue Keppra 750 mg twice a day. Keppra level within normal range of 17.5. EEG was normal for her age. Evaluated by neurology. #2 pulmonary embolism, d-dimer was elevated at 4.56, CT angiogram of the chest was positive for pulmonary embolus in the right lower lobe pulmonary artery, patient was started on IV heparin. Bilateral Dopplers of the lower extremities negative for DVT left arm Doppler negative for DVT area await further anticoagulation recommendations per cardiology and pulmonary. Echo shows an EF of 55-60% with LA severely dilated. Patient was placed on Eliquis. She has a 30 day free supply. And a $40 co-pay after that. #3 urinary tract infection patient was started on IV Rocephin 1 g every 24 hours. And culture pending. Patient will be switched over to Keflex 500 mg by mouth twice a day for 5 more days #4 underlying history of hypertension continue was current medications reviewed Catapres was discontinued during this admission due to lower blood pressures. We'll pressures are now stable #4 underlying history of hyperlipidemia maintained on Niaspan continue #5 underlying history of gout maintained on allopurinol continue #6 underlying history of paroxysmal atrial fibrillation #7 underlying history of autoimmune disorder, not clearly identified followed at [facility] also diagnosed then with fibromyalgia #8 previous history of gastrointestinal bleeding #9 left shoulder and arm pain: Patient evaluated by orthopedics. No surgical intervention. X-rays were negative for any fractures. They did add Flexeril which did help patient's symptoms. She will be following up with Dr. Bullard outpatient #10 2.5 cm thyroid nodule noted on left arm Doppler ultrasound. Thyroid studies within normal range. Patient will follow-up outpatient Dr. Becerril [facility] course Patient is a 66-year-old female well known to my practice who presented to [facility] emergency room after having 2 seizures at home. Patient states that she felt weak and nauseated she went to the bathroom where she had a seizure she fell to the floor and was unconscious her followed her to the bathroom patient regained consciousness however shortly after she had another episode of loss of consciousness. Patient states that these 2 episodes are similar to previous history of seizures that she had in the past she states that she gets an aura with severe nausea, then she loses consciousness she never has any limb movements. Patient has been followed by Dr. Mujica, she is maintained on Keppra 750 mg twice daily which she has been taking regularly. Patient was brought in to [facility] emergency room, she was complaining of severe left arm pain, d-dimer was elevated at 4.5, CT angiogram of the chest was done and was positive for pulmonary embolism, patient was started on IV heparin and was admitted to telemetry floor. Patient also was complaining of frequency was urination urine analysis was done in the emergency room and revealed evidence of urinary tract infection she was started on IV Rocephin 1 g every 24 hours. Patient has had no further seizures. Keppra level within normal range. Evaluated by neurology. EEG is normal for her age. And will have patient continue her Keppra and follow-up with her neurologist in outpatient setting within the next week. Likely her syncopal episodes were secondary to her breakthrough seizure. Patient also was found to have a pulmonary embolism. Initially started on IV heparin. She was switched over to Eliquis. There have been no signs of bleeding. She has a $40 co-pay and is agreeable to this. Her first month supply is free. Patient will continue 5 more days of treatment for her UTI. Patient was seen by orthopedics in regards to her left shoulder and arm pain. There is no evidence of fractures on x-rays. They did add Flexeril and this leaves patient's symptoms. She'll follow-up with her orthopedic doctor outpatient. She'll be given a prescription for the Flexeril and a small prescription of the Aragon. Patient is medically stable for discharge. She's been cleared by consulting physicians. Please refer to chart for any further details. I performed an examination of the patient and discussed their management with the physician Pathology Transcriptionist. I have reviewed the Physician Pathology Transcriptionist's notes and agree with the documented findings and plan of care Patient Condition at Discharge: Stable Plan - Discharge Summary New Discharge Prescriptions: New Apixaban [Eliquis] 5 mg PO BID #0 tab Cephalexin [Keflex] 500 mg PO Q12HR #10 cap Cyclobenzaprine [Flexeril] 10 mg PO Q8HR PRN #30 tab PRN Reason: Muscle Spasm HYDROcodone/APAP 5-325MG [Aragon 5-325] 1 each PO Q6HR PRN #40 tab PRN Reason: Moderate Pain Continue Niacin [Niaspan] 1,000 mg PO DAILY Cyanocobalamin [Vitamin B-12] 1,000 mcg PO DAILY@1200 L.acidoph/B.long/L.plant/B.lac [Probiotic Acidophilus Beads] 1 cap PO DAILY@ 1200 Propafenone [Rythmol] 150 mg PO TID [place]-3 Fatty Acids/Fish Oil [Fish Oil 1,000 mg Softgel] 1 cap PO BID Hydrochlorothiazide [Hydrodiuril] 25 mg PO DAILY@1200 Multivitamin/Iron/Folic Acid [Centrum Complete Multivit Tab] 1 tab PO DAILY Allopurinol [Zyloprim] 300 mg PO DAILY@1200 Irbesartan [Avapro] 300 mg PO HS Aspirin 81 mg PO DAILY Tumeric/Curcumin 1 tab PO DAILY@1200 levETIRAcetam [Keppra] 750 mg PO BID Multivitamins, Thera [Multivitamin (formulary)] 0.5 tab PO W/SUPPER Magnesium Oxide [Mag-Ox] 250 mg PO BID Garlique 1 tab PO DAILY@1200 Furosemide [Lasix] 40 mg PO DAILY Furosemide [Lasix] 20 mg PO HS Cranberry Fruit Extract [Cranberry] 200 mg PO BID Discontinued cloNIDine HCL [Catapres] 0.05 mg PO BID Discharge Medication List Allopurinol [Zyloprim] 300 mg PO DAILY@1200 08/15/14 [History] Aspirin 81 mg PO DAILY 08/15/14 [History] Cyanocobalamin [Vitamin B-12] 1,000 mcg PO DAILY@1200 08/15/14 [History] Hydrochlorothiazide [Hydrodiuril] 25 mg PO DAILY@1200 08/15/14 [History] Irbesartan [Avapro] 300 mg PO HS 08/15/14 [History] L.acidoph/B.long/L.plant/B.lac [Probiotic Acidophilus Beads] 1 cap PO DAILY@ 1200 08/15/14 [History] Multivitamin/Iron/Folic Acid [Centrum Complete Multivit Tab] 1 tab PO DAILY [History] Niacin [Niaspan] 1,000 mg PO DAILY 08/15/14 [History] [place]-3 Fatty Acids/Fish Oil [Fish Oil 1,000 mg Softgel] 1 cap PO BID 08/15/14 [ History] Propafenone [Rythmol] 150 mg PO TID 08/15/14 [History] Tumeric/Curcumin 1 tab PO DAILY@1200 05/08/15 [History] Cranberry Fruit Extract [Cranberry] 200 mg PO BID 03/12/17 [History] Furosemide [Lasix] 20 mg PO HS 03/12/17 [History] Furosemide [Lasix] 40 mg PO DAILY 03/12/17 [History] Garlique 1 tab PO DAILY@1200 03/12/17 [History] Magnesium Oxide [Mag-Ox] 250 mg PO BID 03/12/17 [History] Multivitamins, Thera [Multivitamin (formulary)] 0.5 tab PO W/SUPPER 03/12/17 [ History] levETIRAcetam [Keppra] 750 mg PO BID 03/12/17 [History] Apixaban [Eliquis] 5 mg PO BID #0 tab 03/14/17 [Rx] Cephalexin [Keflex] 500 mg PO Q12HR #10 cap 03/14/17 [Rx] Cyclobenzaprine [Flexeril] 10 mg PO Q8HR PRN #30 tab 03/14/17 [Rx] HYDROcodone/APAP 5-325MG [Aragon 5-325] 1 each PO Q6HR PRN #40 tab 03/14/17 [Rx] Follow up Appointment(s)/Referral(s): [facility], [NON-STAFF] - Alivia Barajas MD [STAFF PHYSICIAN] - 1 Week Kim Becerril MD [Primary Care Provider] - 1 Week Activity/Diet/Wound Care/Special Instructions: Pt has a free 30 day supply of Eliquis filled in OP pharmacy Diet: cardiac Activity: as tolerated. No driving for 6 months after a seizure Follow up with Dr. Bullard as scheduled. Discharge Disposition: HOME WITH HOME HEALTH SERVICES
--- NOTE | 2017-03-14 12:52 | P.PN ---
Mary Is a 66-year-old female patient who presented to the emergency department earlier this morning because of pleuritic chest pain along the left chest area. The pain was sharp, worse with deep breathing and was radiating towards her left axillary. No anterior chest pain. No angina. No nausea. No vomiting. No hemoptysis. No swelling in the lower extremities. This patient has been having difficulties with mobility. She has had previous evidence spine surgery and lumbar fusion. She was being considered for an epidural shots by the pain specialist and she had been having some weakness in the left lower extremity and this has somewhat limited her ability to walk. Earlier this morning, the patient got up at around 4:30 AM to go to the bathroom and she experienced the pain. Subsequently she has also seizure episode. She is known to have epilepsy however she has been seizure-free for many years. She has been on Keppra without any complications and the patient was successfully treated. Following the seizure, the patient had a fall and some limited trauma to her left forehead. She came into the hospital with CT angios the chest was done and the examination was positive for pulmonary embolism in the right lower lobe pulmonary artery. Interestingly the left pulmonary artery branches were clear of any pulmonary artery filling defects. 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 Pain. The patient denies having any personal of DVT or pulmonary embolism. No personal history. No history of malignancy. Her brother apparently has a factor V Leyden deficiency and had complications of DVT. No recent orthopedic surgery. She had that and ulnar nerve release approximately 6 months ago and it was only orthopedic surgeons that was done recently. She was also treated for a urinary tract infection with Bactrim. The patient is seen again today 03/13/2017 on the selective care unit. She is awake and alert in no acute distress. Her main complaints today are that of left axillary shoulder and upper arm discomfort. She denies any worsening shortness of breath, cough or congestion. She is maintaining good O2 saturations in the upper 90s on room air. She is afebrile. Hemodynamically stable. She is continued on a heparin drip for now. No significant pain on inhalation. She's had a lot of musculoskeletal type pain. Orthopedics has been consulted. On 03/14/2017 the patient is feeling better. She was evaluated extensively by orthopedic surgery. X-ray of the left humerus and the shoulder is within normal limits. She was started on Flexeril. On today's evaluation she is sitting better. The pain over the left posterior chest and the shoulder area has completely or near completely recovered. No pleurisy. No hemoptysis. She is on oral anticoagulation. IV heparin has been discontinued. She is hemodynamically stable. No nausea. No vomiting. No seizure activity has been noted. No bleeding complications. No other significant events over the past 24 hours and the patient is rather stable at this point. Objective - Vital Signs Vital signs: Vital Signs Temp 97.8 F 03/14/17 11:31 Pulse 59 L 03/14/17 11:31 Resp 18 03/14/17 11:31 BP 97/59 03/14/17 11:31 Pulse Ox 98 03/14/17 11:31 Intake & Output 03/13/17 03/14/17 03/14/17 18:59 06:59 18:59 Intake Total 861.006 201.555 180 Output Total 800 Balance 61.006 201.555 180 Weight 92.9 kg Intake: Intake, IV Titration 501.006 201.555 Amount Heparin Sodium,Porcine/ 501.006 201.555 D5w Pmx 25,000 unit In Dextrose/Water 1 500ml. bag @ 18 UNITS/KG/HR 33. 96 mls/hr IV .[id number] [facility] Rx#:[id number] Oral 360 180 Output: Urine 800 Other: Voiding Method Toilet Toilet # Voids 1 1 - Exam The patient appeared well nourished and normally developed. Vital signs as documented. Head exam is unremarkable. No scleral icterus or corneal arcus noted. Neck is without jugular venous distension, thyromegaly, or carotid bruits. Carotid upstrokes are brisk bilaterally. Lungs are clear to auscultation and percussion. Cardiac exam reveals the PMI to be normally sized and situated. Rhythm is regular. First and second heart sounds normal. No murmurs, rubs or gallops. Abdominal exam reveals normal bowel sounds, no masses , no organomegaly and no aortic enlargement. Extremities are nonedematous and both femoral and pedal pulses are normal. - Labs CBC & Chem 7: 03/14/17 05:52 03/14/17 05:52 Labs: Abnormal Lab Results - Last 24 Hours (Table) 03/13/17 03/13/17 03/14/17 Range/Units 15:06 22:50 05:52 RBC 3.79 L (3.80-5.40) m/uL APTT 128.3 H* 85.2 H (22.0-30.0) sec Total Protein (6.3-8.2) g/dL 03/14/17 03/14/17 Range/Units 05:52 05:52 RBC (3.80-5.40) m/uL APTT 66.1 H (22.0-30.0) sec Total Protein 5.9 L (6.3-8.2) g/dL Microbiology - Last 24 Hours (Table) 03/13/17 06:55 Urine Culture - Final Urine,Clean Catch Assessment and Plan Plan: Assessment 1 acute pleuritic left-sided chest pain, most likely in the setting of a pulmonary embolism. Interestingly, the filling defects were seen in the right compared to the left and the patient has filling defects of the right lower lobe pulmonary artery branches. This does not rule out the possibility of embolization to the left. Dopplers of the lower extremities are pending. 2 questionable family history of factor V Leyden 3 epilepsy with breakthrough seizures, currently inactive in stable 4 paroxysmal atrial fibrillation on no anticoagulants 5 previous history of GI bleed currently inactive and stable hemoglobin is at 12.8 6 difficulty with mobility and gait and the patient has been having left lower extremity weakness and she's been essentially sedentary 7 cervical and lumbar degenerative disc disease with previous surgeries and fusions and multilevel laminectomy 8 fibromyalgia 9 hyperlipidemia 10 hypertension 11 bronchial asthma 12 gout 13 question history of autoimmune disease has not been completely specified Plan Continue Apixiban . Continue Flexeril. Ablate in the hallway. We'll continue to follow. Discharge planning is in progress. Input by orthopedic surgery is appreciated.
--- NOTE | 2017-03-14 14:29 | P.PN ---
Subjective This is a pleasant 66-year-old female patient who follows with Dr. Nicole in the office. She has a known history of atrial fibrillation, GI bleed on pradaxa , seizure disorder and hypertension. Presented to the emergency department with complaints of left sided mid axillary pain and left arm pain followed by a wave of nausea and loss of consciousness. Patient believes she may have had a seizure however this was unwitnessed. Her didn't witness however a second loss of consciousness which did appear to be seizure-like activity. Upon presentation, D dimer was found to be elevated and a CT of the chest showed right lower lobe pulmonary artery embolism. Troponins have been negative 3. EKG showed sinus bradycardia with bundle branch block. Patient denies any travel since december at which time she flew home from [place]. She denies any complaints of calf pain redness or warmth. She's had no complaints of shortness of breath and no right-sided chest pain. Upon examination, she is resting comfortably in bed. She denies any further complaints of chest discomfort. 2-D echo with Doppler showed normal LV systolic function without RV enlargement. Bilateral lower extremity venous Doppler and left upper extremity venous Doppler were negative for DVTs. She has been started on Eliquis. Objective - Vital Signs Vital signs: Vital Signs Temp 97.8 F 03/14/17 11:31 Pulse 59 L 03/14/17 11:31 Resp 18 03/14/17 11:31 BP 97/59 03/14/17 11:31 Pulse Ox 98 03/14/17 11:31 Intake & Output 03/13/17 03/14/17 03/14/17 18:59 06:59 18:59 Intake Total 861.006 201.555 180 Output Total 800 Balance 61.006 201.555 180 Weight 92.9 kg Intake: Intake, IV Titration 501.006 201.555 Amount Heparin Sodium,Porcine/ 501.006 201.555 D5w Pmx 25,000 unit In Dextrose/Water 1 500ml. bag @ 18 UNITS/KG/HR 33. 96 mls/hr IV .[id number] [facility] Rx#:[id number] Oral 360 180 Output: Urine 800 Other: Voiding Method Toilet Toilet # Voids 1 1 - Exam PHYSICAL EXAMINATION: HEENT: Head is atraumatic, normocephalic. Pupils equal, round. Neck is supple. There is no elevated jugular venous pressure. HEART EXAMINATION: Heart sounds regular, S1 and S2 normal with a systolic murmur. CHEST EXAMINATION: Lungs are clear to auscultation and precussion. No chest wall tenderness is noted on palpation or with deep breathing. ABDOMEN: Soft, nontender. Bowel sounds are heard. No organomegaly noted. EXTREMITIES: 2+ peripheral pulses with no evidence of peripheral edema and no calf tenderness noted. NEUROLOGIC patient is awake, alert and oriented x3. - Labs CBC & Chem 7: 03/14/17 05:52 03/14/17 05:52 Labs: Abnormal Lab Results - Last 24 Hours (Table) 03/13/17 03/13/17 03/14/17 Range/Units 15:06 22:50 05:52 RBC 3.79 L (3.80-5.40) m/uL APTT 128.3 H* 85.2 H (22.0-30.0) sec Total Protein (6.3-8.2) g/dL 03/14/17 03/14/17 Range/Units 05:52 05:52 RBC (3.80-5.40) m/uL APTT 66.1 H (22.0-30.0) sec Total Protein 5.9 L (6.3-8.2) g/dL Microbiology - Last 24 Hours (Table) 03/13/17 06:55 Urine Culture - Final Urine,Clean Catch Assessment and Plan Plan: Assessment and plan #1 paroxysmal atrial flutter, not previously on anticoagulation due to GI bleed while on Pradaxa #2 chest discomfort, troponins negative 3 #3 evidence of PE on CTA #4 seizure disorder #5 loss of consciousness, likely seizure activity. From cardiology's perspective, the patient will require anticoagulation due to PAF as well as PE. The patient has been started on Eliquis. From our standpoint the patient may be discharged home when ok with Primary. She will follow-up in the office with Dr. Nicole. The above dictated assessment and findings were discussed with signing physician. The impression and plan of care have been directed as dictated. Joanne Espinosa, Nurse Practitioner, acting as scribe for signing physician.
--- NOTE | 2017-03-14 18:31 | P.PN ---
Subjective This patient is 66-year-old female who was admitted to hospital with possible breakthrough seizures. She has long-standing history of seizure disorder. She has been taking Keppra 750 mg twice a day. On day of admission she had a possible seizure in the bathroom. She had a second seizure that was witnessed by her . She was brought into the emergency room subsequent admitted to Hospital. She was found to have evidence of a pulmonary embolism and is being followed by cardiology and pulmonary medicine. She has been started on IV heparin protocol. Patient underwent routine EEG today for further evaluation of seizure disorder. Her EEG was reviewed today and is normal for her age. There is no evidence of any epileptiform discharges. Her Keppra blood level is theraupeutic today at 17.5. She seems to be doing fairly well and had no further seizure episodes since admission to the hospital. Patient continues to have left shoulder and arm pain. She was seen by orthopedic surgery and they have prescribed Flexeril for the patient. X-rays have been ordered as well. The patient has evidence of pulmonary embolism. Her CTA angiogram of the chest was positive for pulmonary embolus in the right lower lobe pulmonary artery. She has been seen by cardiology and they are recommending that she be started on Eliquis for long-term anticoagulation. She should follow-up with her primary care physician for further management of the pulmonary embolus. We will continue close neurological follow-up with the patient during this admission. Patient is being considered for discharge home today. As noted her Keppra level did come back therapeutic at 17.5. She is to continue on her current dose of Keppra. She may follow-up with her regular neurologist in the outpatient setting. Overall prognosis at this time remains guarded. Objective - Vital Signs Vital signs: Vital Signs Temp 97.8 F 03/14/17 07:47 Pulse 59 L 03/14/17 07:47 Resp 18 03/14/17 07:47 BP 90/55 03/14/17 07:47 Pulse Ox 97 03/14/17 07:47 Intake & Output 03/13/17 03/14/17 03/14/17 18:59 06:59 18:59 Intake Total 861.006 201.555 180 Output Total 800 Balance 61.006 201.555 180 Weight 92.9 kg Intake: Intake, IV Titration 501.006 201.555 Amount Heparin Sodium,Porcine/ 501.006 201.555 D5w Pmx 25,000 unit In Dextrose/Water 1 500ml. bag @ 18 UNITS/KG/HR 33. 96 mls/hr IV .[id number] [facility] Rx#:[id number] Oral 360 180 Output: Urine 800 Other: Voiding Method Toilet Toilet # Voids 1 - Exam Physical examination: PHYSICAL EXAMINATION: Patient is resting comfortably in bed. VITAL SIGNS: Blood pressure is [97/59]. Heart rate is [58]. Respiration is [16] . Temperature is [97.8]. HEENT: Head is atraumatic, neck is supple, there were no carotid bruits. CHEST: Lungs are clear to auscultation and percussion. CARDIAC: S1, S2 normal rate and rhythm. There is no murmur. ABDOMEN: Soft and nontender. Bowel sounds are present. EXTREMITIES: There is no pedal edema. Peripheral pulses are present. Neurological examination: Patient's neurological examination is unchanged from yesterday. Neurological examination is nonfocal. - Labs CBC & Chem 7: 03/14/17 05:52 03/14/17 05:52 Labs: Abnormal Lab Results - Last 24 Hours (Table) 03/13/17 03/13/17 03/14/17 Range/Units 15:06 22:50 05:52 RBC 3.79 L (3.80-5.40) m/uL APTT 128.3 H* 85.2 H (22.0-30.0) sec Total Protein (6.3-8.2) g/dL 03/14/17 03/14/17 Range/Units 05:52 05:52 RBC (3.80-5.40) m/uL APTT 66.1 H (22.0-30.0) sec Total Protein 5.9 L (6.3-8.2) g/dL Microbiology - Last 24 Hours (Table) 03/13/17 06:55 Urine Culture - Preliminary Urine,Clean Catch Assessment and Plan (1) Generalized tonic-clonic seizure Status: Acute Code(s): G40.409 - OTH GENERALIZED EPILEPSY, NOT INTRACTABLE, W/ O STAT EPI (2) Pulmonary embolism Status: Acute Code(s): I26.99 - OTHER PULMONARY EMBOLISM WITHOUT ACUTE COR PULMONALE (3) Afib Status: Acute Code(s): I48.91 - UNSPECIFIED ATRIAL FIBRILLATION (4) Chest pain Status: Acute Code(s): R07.9 - CHEST PAIN, UNSPECIFIED Plan: This patient is a 66-year-old female who was admitted to hospital with possible breakthrough seizures. She was at home and had 2 events at home causing her to fall and become unresponsive for a short period of time. She has a known history of seizure disorder and has been taking Keppra at home on a regular basis. Her Keppra blood level did come back therapeutic at 17.5. She is to continue on her current dose of Keppra at this time. She underwent a routine EEG today which was reviewed and is normal for age. There is no evidence of any epileptiform discharges. We are waiting her Keppra blood level to return from the laboratory and it will be adjusted if necessary. Patient is being treated for acute pulmonary embolism. She is also having significant left arm and shoulder pain. Orthopedic surgery is following the patient now. Overall prognosis at this time remains guarded. We will continue to monitor her neurological condition closely during this admission. All test results were discussed today with the patient in detail. Patient is being considered for discharge home today. She may follow-up with her regular neurologist soon after discharge home. She is to continue on her current dose of Keppra 750 mg twice a day. All test results were reviewed today with the patient. She is stable for discharge home and should follow-up with her primary care physician in one week. Her overall prognosis at this time remains guarded.
== END 2017-03-14 13:26 | disposition home health service (06) | DRG 100 ==
LOC: EC 04:45 → 6SEL 07:55
PROVIDERS: ADMIT Internal Medicine; ATTEND Internal Medicine
DX: G40.409 Other generalized epilepsy and epileptic syndromes, not intractable, without status epilepticus (principal); I26.99 Other pulmonary embolism without acute cor pulmonale; I48.92 Unspecified atrial flutter; N39.0 Urinary tract infection, site not specified; I48.0 Paroxysmal atrial fibrillation; E04.1 Nontoxic single thyroid nodule; I10 Essential (primary) hypertension; E78.5 Hyperlipidemia, unspecified; M10.9 Gout, unspecified; I45.4 Nonspecific intraventricular block; J45.909 Unspecified asthma, uncomplicated; K44.9 Diaphragmatic hernia without obstruction or gangrene; K58.9 Irritable bowel syndrome, unspecified; M50.30 Other cervical disc degeneration, unspecified cervical region; M51.36 Other intervertebral disc degeneration, lumbar region; M79.7 Fibromyalgia; M85.80 Other specified disorders of bone density and structure, unspecified site; G89.29 Other chronic pain; M25.512 Pain in left shoulder; M79.602 Pain in left arm; F40.240 Claustrophobia; M16.0 Bilateral primary osteoarthritis of hip; M47.9 Spondylosis, unspecified; E66.9 Obesity, unspecified; R26.9 Unspecified abnormalities of gait and mobility; R07.9 Chest pain, unspecified; M35.9 Systemic involvement of connective tissue, unspecified; Z72.820 Sleep deprivation; Z79.82 Long term (current) use of aspirin; Z79.899 Other long term (current) drug therapy; Z98.1 Arthrodesis status; Z96.642 Presence of left artificial hip joint; Z88.5 Allergy status to narcotic agent; Z88.7 Allergy status to serum and vaccine; Z88.8 Allergy status to other drugs, medicaments and biological substances; Z82.49 Family history of ischemic heart disease and other diseases of the circulatory system; W18.30XA Fall on same level, unspecified, initial encounter; W22.8XXA Striking against or struck by other objects, initial encounter
CPT/HCPCS: 36415; 70450; 71275; 80053; 80061; 80177; 81001; 82550; 82553; 84439; 84443; 84484; 85025; 85379; 85610; 85652; 85730; 87086; 93005; 93306; 93970; 95816; 96365; 96367; 96375; 96376; 99285

== ENCOUNTER → 2017-04-04 | Outpatient (CLI) | payer MEDICARE ==
--- NOTE | 2017-04-04 11:24 | US ---
EXAMINATION TYPE: US thyroid st tissue head/neck DATE OF EXAM: 04/04/2017 COMPARISON: CTA chest March 12, 2017. CLINICAL HISTORY: E04.2 MULTINODULAR GOITER. GLAND SIZE: Right Lobe: 5. x 2.2 x 1.6 cm Overall Parenchyma: homogenous Left Lobe: 6.2 x 2.3 x 1.8 cm Overall Parenchyma: homogeneous Isthmus Thickness: 0.4 cm NODULES RIGHT: # of nodules measured on right: 3 1. 1.2 X 0.5 x 0.3 cm hypoechoic solid nodule at the upper pole with poorly defined margins. This nodule is taller than wide and shows no intranodular vascularity. Prior size: no prior US 2. 1.4 X 1.2 x 0.7 cm hypoechoic mixed nodule at the mid lower pole with irregular margins. This nod ule is taller than wide and shows no intranodular vascularity. 3. 1.2 X 0.8 x 0.8 cm hypoechoic mixed nodule at the lower pole with poorly defined margins. This no dule is taller than wide and shows no intranodular vascularity. LEFT: # of nodules measured on left: 3 1. 2.6 X 2.0 x 1.4 cm isoechoic mixed nodule at the upper mid pole with well-defined margins. This nodule is wider than tall and shows intranodular vascularity. 2. 1.2 X 1.0 x 0.8 cm hypoechoic mixed nodule at the medial lower pole with poorly defined margins. This nodule is taller than wide and shows no intranodular vascularity. 3. 1.1 X 1.0 x 0.9 cm hypoechoic mixed nodule at the lower pole with well-defined margins. This nod ule is taller than wide and shows no intranodular vascularity. ISTHMUS: # of nodules measured in the isthmus: 1 1. 1.2 X 1.0 x 0.2 cm hypoechoic solid nodule at the lower isthmus with well-defined margins. This nodule is taller than wide and shows intranodular vascularity. Bilateral neck scanned, no evidence of lymphadenopathy. Thyroid gland is overall upper limits of normal in size with scattered nodules identified bilaterally , several greater than 1 cm marked by technologist. IMPRESSION: Multinodular goiter felt present. Need to further investigate by ultrasound guided fine-needle aspira tion should be based on clinical correlation.
== END | disposition home or self-care (01) ==
LOC: RADUSWWP 08:09
PROVIDERS: ATTEND Internal Medicine Endocrinology, Diabetes & Metabolism
DX: E04.2 Nontoxic multinodular goiter (principal)
CPT/HCPCS: 76536

== ENCOUNTER → 2018-03-02 | Outpatient (CLI) | payer MEDICARE | END | disposition home or self-care (01) | LOC: LABWHC1 08:59 | PROVIDERS: ATTEND Physical Medicine & Rehabilitation | DX: Z01.812 Encounter for preprocedural laboratory examination (principal); N28.9 Disorder of kidney and ureter, unspecified | CPT/HCPCS: 36415; 82565; 84520 ==

== ENCOUNTER → 2018-04-08 | Outpatient (CLI) | payer MEDICARE ==
--- NOTE | 2018-04-08 10:09 | US ---
EXAMINATION TYPE: US kidneys/renal and bladder DATE OF EXAM: 04/08/2018 COMPARISON: CT abdomen pelvis June 05, 2015 CLINICAL HISTORY: R10.9 KIDNEY STONE. Right-sided Flank pain into back and UTI EXAM MEASUREMENTS: Right Kidney: 9.9 x 4.4 x 4.5 Left Kidney: 10.0 x 4.8 x 4.1 Post Void Residual Volume: 0.77 minimal Right Kidney: No hydronephrosis , technologist aguero 1.1 cm round hypoechoic anechoic lesion lower pole level right kidney likely reflecting simple cysts but too small to definitively characterize. Th ere is similar slightly hypoechoic vague area with central hyperechoic focus measuring roughly 1.1 cm too small to definitively characterize mid pole level Left Kidney: No hydronephrosis or masses seen Bladder: wnl Bilateral Jets seen: Yes Normal Post Void Residual: Yes There is no evidence for hydronephrosis at this point in time. No nephrolithiasis is seen. No ray s are identified. The urinary bladder is anechoic. Bilateral ureteral jets are seen. IMPRESSION: No hydronephrosis is evident bilaterally. If there is concern for nonobstructing renal calculi advise CT evaluation.
== END | disposition home or self-care (01) ==
LOC: RADUSWWP 09:31
PROVIDERS: ATTEND Internal Medicine
DX: R10.9 Unspecified abdominal pain (principal)
CPT/HCPCS: 76770

== ENCOUNTER → 2018-05-22 | Outpatient (CLI) | payer MEDICARE ==
--- NOTE | 2018-05-25 13:18 | MM ---
Reason for exam: screening (asymptomatic). Last mammogram was performed 1 year ago. History: Patient is postmenopausal and is nulliparous. Benign excisional biopsy of the right breast, 1999. Physical Findings: A clinical breast exam by your physician is recommended on an annual basis and results should be correlated with mammographic findings. MG 3D Screening Mammo W/Cad Bilateral CC and MLO view(s) were taken. Prior study comparison: May 19, 2017, bilateral MG 3d screening mammo w/cad. May 03, 2016, bilateral MG 3d screening mammo w/cad. There are scattered fibroglandular densities. No significant changes when compared with prior studies. ASSESSMENT: Benign, BI-RAD 2 RECOMMENDATION: Routine screening mammogram of both breasts in 1 year.
== END | disposition home or self-care (01) ==
LOC: RADMAMWWP 14:33
PROVIDERS: ATTEND Obstetrics & Gynecology
DX: Z12.31 Encounter for screening mammogram for malignant neoplasm of breast (principal)
CPT/HCPCS: 77063; 77067

== ENCOUNTER → 2019-03-03 | Outpatient (CLI) | payer MEDICARE ==
--- NOTE | 2019-03-03 11:04 | XR ---
EXAMINATION TYPE: XR lumbar spine 2 or 3V DATE OF EXAM: 03/03/2019 CLINICAL HISTORY: Postlaminectomy TECHNIQUE: Frontal and lateral images of the lumbar spine are obtained. COMPARISON: Prior lumbar spine x-ray from October 12, 2013 FINDINGS: There are 5 lumbar type vertebral bodies redemonstrated. Posterior interpedicular rods and screws transfixing L1-L4 levels bilaterally is redemonstrated. There is new posterior interpedicular rods and screws transfixing L5-S1 levels. Metallic disc spacer at L4-L5 level is again seen. New dis c material L5-S1 level is noted. Bony spondylosis bilaterally remains present. Slight grade 1 anterol isthesis L4 on L5 is again seen and felt stable. Overlying soft tissue is unremarkable. Increasing di sc space narrowing of the upper to mid lumbar spine is present with satisfactory alignment. IMPRESSION: As above.
--- NOTE | 2019-03-03 11:06 | XR ---
EXAMINATION TYPE: XR thoracic spine 2V DATE OF EXAM: 03/03/2019 CLINICAL HISTORY: Recent back surgery, laminectomy TECHNIQUE: Frontal, lateral, and swimmer's view of thoracic spine are obtained. COMPARISON: Thoracic spine x-ray October 12, 2013. FINDINGS: Anterior fusion plate C6-T1 level is redemonstrated. Alignment is stable and satisfactory. Moderate to severe multilevel anterior spurring in the mid to lower thoracic spine with right lateral spurring remains present. Vertebral body heights are maintained. IMPRESSION: As above.
== END | disposition home or self-care (01) ==
LOC: RADXRMAIN 10:26
DX: M99.73 Connective tissue and disc stenosis of intervertebral foramina of lumbar region (principal); M43.16 Spondylolisthesis, lumbar region; M47.816 Spondylosis without myelopathy or radiculopathy, lumbar region; M79.89 Other specified soft tissue disorders; M43.23 Fusion of spine, cervicothoracic region; M77.8 Other enthesopathies, not elsewhere classified
CPT/HCPCS: 72070; 72100

== ENCOUNTER → 2019-05-07 | Outpatient (CLI) | payer MEDICARE ==
--- NOTE | 2019-05-07 13:43 | US ---
EXAMINATION TYPE: US venous doppler duplex LE RT DATE OF EXAM: 05/07/2019 1:26 PM COMPARISON: NONE CLINICAL HISTORY: M79.661 pain in right lower limb, R22.41 swelling. Pain and edema right leg. Spinal surgery end of January 2019. Patient on blood thinner. Patient states history of old clot when ultrasou nd was done at [facility] in January 2019 SIDE PERFORMED: right TECHNIQUE: The lower extremity deep venous system is examined utilizing real time linear array sonog jay with graded compression, doppler sonography and color-flow sonography. VESSELS IMAGED: External Iliac Vein (EIV) Common Femoral Vein Deep Femoral Vein Greater Saphenous Vein * Femoral Vein Popliteal Vein Small Saphenous Vein * Proximal Calf Veins (* superficial vessels) Grayscale, color doppler, spectral doppler imaging performed of the deep veins of the right lower ext remity. Right Leg: Positive for DVT. Thready flow with partial compression femoral vein upper through poplit eal fossa appears chronic IMPRESSION: Incompletely occluding thrombus appears chronic given the partial compression from the up per right femoral vein through the popliteal fossa. Patient has a known deep venous thrombosis and is currently on blood thinners.
== END | disposition home or self-care (01) ==
LOC: RADUSWWP 13:00
PROVIDERS: ATTEND Internal Medicine
DX: I82.501 Chronic embolism and thrombosis of unspecified deep veins of right lower extremity (principal)

== ENCOUNTER → 2019-05-25 | Outpatient (CLI) | payer MEDICARE ==
--- NOTE | 2019-05-25 10:02 | XR ---
EXAMINATION TYPE: XR lumbar spine 2 or 3V DATE OF EXAM: 05/25/2019 CLINICAL HISTORY: pain TECHNIQUE: Three views of the lumbar spine are submitted. COMPARISON: 03/03/2019 FINDINGS: Extensive postoperative change of lumbar fusion and laminectomy extending from L1 through L5 S1. Inte rvertebral body spacers noted. Pedicular screws in place. Stable grade 2 anterolisthesis of L4 and L5 measuring 1 cm. IMPRESSION: Stable postoperative changes and alignment.
--- NOTE | 2019-05-26 11:41 | MM ---
Reason for exam: screening (asymptomatic). Last mammogram was performed 1 year ago. History: Patient is postmenopausal and is nulliparous. Benign excisional biopsy of the right breast, 1999. Physical Findings: A clinical breast exam by your physician is recommended on an annual basis and results should be correlated with mammographic findings. MG 3D Screening Mammo W/Cad Bilateral CC and MLO view(s) were taken. Prior study comparison: May 22, 2018, bilateral MG 3d screening mammo w/cad. May 19, 2017, bilateral MG 3d screening mammo w/cad. There are scattered fibroglandular densities. There are benign appearing round calcifications bilaterally. There is chronic nodularity bilaterally. There is no discrete abnormality. ASSESSMENT: Benign, BI-RAD 2 RECOMMENDATION: Routine screening mammogram of both breasts in 1 year.
== END | disposition home or self-care (01) ==
LOC: RADMAMWWP 08:57
PROVIDERS: ATTEND Obstetrics & Gynecology
DX: Z12.31 Encounter for screening mammogram for malignant neoplasm of breast (principal); M47.816 Spondylosis without myelopathy or radiculopathy, lumbar region; Z98.890 Other specified postprocedural states
CPT/HCPCS: 72100; 77063; 77067

== ENCOUNTER 2019-08-11 11:12 | Day surgery (SDC) | payer MEDICARE ==
[2019-08-09 18:43] VITALS: BMI 33.3
[~2019-08-11 11:12] MED LIST: LACTATED RINGERS 1,000 ML IV SCH
[2019-08-11 11:37] VITALS: RESP 16; TEMP 98.4
[2019-08-11] MEDS ORDERED: LIDOCAINE 1% 20 ML VIAL (10MG/ML) FOR IV START INTRADERMA ONE (11:51)
[2019-08-11] MEDS ORDERED: SCOPOLAMINE 1.5MG/72HR PATCH TRANSDERM ONE (11:52)
[2019-08-11] MEDS ORDERED: ONDANSETRON 4 MG/2 ML VIAL IVP ONE (11:52)
[2019-08-11] MEDS ORDERED: PROPOFOL 10 MG/ML 20 ML VIAL IV ONE (11:53)
--- NOTE | 2019-08-11 12:09 | P.PCN ---
Date of Procedure: 08/11/19 Procedure(s) Performed: BRIEF HISTORY: Patient is a 68-year-old pleasant female scheduled for an elective colonoscopy as a part of evaluation of prior history of colon polyps. PROCEDURE PERFORMED: Colonoscopy. PREOPERATIVE DIAGNOSIS: History of colon polyps. IV sedation per Anesthesia. PROCEDURE: After informed consent was obtained, the patient, was brought into the endoscopy unit. IV sedation was administered by Anesthesia under continuous monitoring. Digital rectal examination was normal. Initially the Olympus CF-160 flexible video colonoscope was then inserted in the rectum, gradually advanced into the cecum without any difficulty. Careful examination was performed as the scope was gradually being withdrawn. Ileocecal valve and the appendiceal orifice were visualized and appeared normal. Prep was excellent. Mucosa of the cecum, ascending colon, transverse colon, descending colon, sigmoid colon, and rectum appeared normal. Retroflexion was performed in the rectum and no lesions were seen. The patient tolerated the procedure well. IMPRESSION: Normal-appearing colon from rectum to cecum with no evidence of colorectal neoplasia. RECOMMENDATIONS: Findings of this examination were discussed with the patient as her family. She was advised to have a repeat surveillance colonoscopy in 5 years from now because of the prior history of colon polyps.
[2019-08-11 12:25] VITALS: BP 120/78; PULSE 53
== END 2019-08-11 12:49 | disposition home or self-care (01) ==
LOC: ORWHC2ENDO 11:12
PROVIDERS: ATTEND Internal Medicine Gastroenterology
DX: Z12.11 Encounter for screening for malignant neoplasm of colon (principal); Z86.010 Personal history of colon polyps; I10 Essential (primary) hypertension; I48.91 Unspecified atrial fibrillation; J45.909 Unspecified asthma, uncomplicated; E78.5 Hyperlipidemia, unspecified; E07.9 Disorder of thyroid, unspecified; M79.7 Fibromyalgia; E66.9 Obesity, unspecified; D89.89 Other specified disorders involving the immune mechanism, not elsewhere classified; Z88.5 Allergy status to narcotic agent; Z88.0 Allergy status to penicillin; Z79.01 Long term (current) use of anticoagulants; Z79.890 Hormone replacement therapy; Z79.899 Other long term (current) drug therapy; Z86.69 Personal history of other diseases of the nervous system and sense organs; Z68.33 Body mass index [BMI] 33.0-33.9, adult
CPT/HCPCS: J2405; J2704; G0105; 45378

== ENCOUNTER → 2020-02-09 | Outpatient (CLI) | payer MEDICARE ==
--- NOTE | 2020-02-09 17:27 | US ---
EXAMINATION TYPE: US venous doppler duplex LE RT DATE OF EXAM: 02/09/2020 4:52 PM COMPARISON: Prior right lower extremity ultrasound May 07, 2019 CLINICAL HISTORY: M79.661,R22.4 1 PAIN AND SWELLING RT LOWER LIMB. Hx of DVT rt leg and PE and is taking blood thinner. Patient compl ains of palpable right anterior lower leg x 2 weeks. SIDE PERFORMED: Right TECHNIQUE: The lower extremity deep venous system is examined utilizing real time linear array sonog jay with graded compression, doppler sonography and color-flow sonography. VESSELS IMAGED: Common Femoral Vein Deep Femoral Vein Greater Saphenous Vein * Femoral Vein Popliteal Vein Small Saphenous Vein * Proximal Calf Veins (* superficial vessels) Right Leg: Positive for non-occluding chronic DVT in Right Femoral Vein. At patient's complaint of p alpable right anterior lower leg a solid hypoechoic oval mass is noted = 1.2 x 0.7 x 0.3cm. Tech findings were called to Dr. Becerril at exam's end. IMPRESSION: Persistent partially occlusive chronic DVT in the distal right superficial femoral vein. No new acute DVT. Towards end of study technologist aguero roughly 1 cm hypoechoic nonvascular focus n ear junction of subcutaneous tissue and muscle of uncertain etiology, favored benign based on size. T his can be correlated with cross-sectional imaging if enlarges or becomes painful.
== END | disposition home or self-care (01) ==
LOC: RADUSWWP 16:04
PROVIDERS: ATTEND Internal Medicine
DX: I82.511 Chronic embolism and thrombosis of right femoral vein (principal)

== ENCOUNTER → 2020-06-30 | Outpatient (CLI) | payer MEDICARE ==
--- NOTE | 2020-06-30 10:45 | BD ---
EXAMINATION TYPE: Axial Bone Density DATE OF EXAM: 06/30/2020 COMPARISON: NONE CLINICAL HISTORY: Height: 66 Weight: 213.6 FRAX RISK QUESTIONS: Alcohol (3 or more units per day): no Family History (Parent hip fracture): no Glucocorticoids (More than 3mos): no (Ex: prednisone, prednisolone, methylprednisolone, dexamethasone, and hydrocortisone). History of Fracture in Adulthood: yes Secondary Osteoporosis: 1. Type 1 Diabetes: no 2. Hyperthyroidism: no 3. Menopause before 45: yes 4. Malnutrition: no 5. Chronic liver disease: no Rheumatoid Arthritis: no Current Tobacco Use: no RISK FACTORS HISTORY OF: Spine Fracture: t spine When: 1987 History of Wrist Fracture: left When: age 21 Surgery to Spine/Hip(right/left)/Wrist (right/left): left hip/ spinal surgery When: 2014 Family History of Osteoporosis: yes Active: no Diet low in dairy products/other sources of calcium: yes Postmenopausal woman: yes Lost more than 2 inches in height since high school: yes Frequent falls: yes MEDICATIONS: Thyroid Medications: thyroid How Lon years Additional History: EXAM MEASUREMENTS: Bone mineral densitometry was performed using the [employer]. Bone mineral density about the R hip (g/cm2): 0.813 T Score values are as follows: -----R Neck: -1.6 -----R Total: -1.5 Bone mineral density has: decreased -1.2 % since study of: 05.19.2017 Bone mineral density about the R Wrist (g/cm2): 0.493 T Score values are as follows: -----Dist. R+U: -2.4 -----Prox. R+U: -2.2 -----Radius total: -3.0 Bone mineral density : baseline IMPRESSION: Osteoporosis (T Score less than -2.5). There is increased fracture risk and therapy is usually indicated based on age. Re-Screen 1-2 years. NOTE: T-SCORE=SD OF THE YOUNG ADULT MEAN.
== END | disposition home or self-care (01) ==
LOC: RADBDWWP 08:55
PROVIDERS: ATTEND Obstetrics & Gynecology
DX: M81.0 Age-related osteoporosis without current pathological fracture (principal)
CPT/HCPCS: 77080

== ENCOUNTER → 2020-10-24 | Outpatient (CLI) | payer MEDICARE ==
--- NOTE | 2020-10-26 11:57 | MM ---
Reason for exam: screening (asymptomatic). Last mammogram was performed 1 year and 5 months ago. History: Patient is postmenopausal and is nulliparous. Benign excisional biopsy of the right breast, 1999. Took hormonal contraceptives for 2 months. Physical Findings: A clinical breast exam by your physician is recommended on an annual basis and results should be correlated with mammographic findings. MG 3D Screening Mammo W/Cad Bilateral CC and MLO view(s) were taken. Prior study comparison: May 25, 2019, bilateral MG 3d screening mammo w/cad. May 22, 2018, bilateral MG 3d screening mammo w/cad. There are scattered fibroglandular densities. No significant changes when compared with prior studies. ASSESSMENT: Benign, BI-RAD 2 RECOMMENDATION: Routine screening mammogram of both breasts in 1 year.
== END ==
LOC: RADMAMWWP 09:16
PROVIDERS: ATTEND Obstetrics & Gynecology
DX: Z12.31 Encounter for screening mammogram for malignant neoplasm of breast (principal); Z78.0 Asymptomatic menopausal state
CPT/HCPCS: 77063; 77067

== ENCOUNTER → 2020-11-09 | Outpatient (CLI) | payer MEDICARE ==
--- NOTE | 2020-11-09 14:16 | US ---
EXAMINATION TYPE: US venous doppler duplex LE DATE OF EXAM: 11/09/2020 12:52 PM COMPARISON: US 2019 CLINICAL HISTORY: I80.9 PHLEBITIS OR THROMBOPHLEBITIS. Bilateral leg swelling x 1 month, history of r ight leg DVT, patient on blood thinners. SIDE PERFORMED: Bilateral TECHNIQUE: The lower extremity deep venous system is examined utilizing real time linear array sonog jay with graded compression, doppler sonography and color-flow sonography. VESSELS IMAGED: Common Femoral Vein Deep Femoral Vein Greater Saphenous Vein * Femoral Vein Popliteal Vein Small Saphenous Vein * Proximal Calf Veins (* superficial vessels) Right Leg: Appears negative for DVT Left Leg: Appears negative for DVT IMPRESSION: 1. Bilateral lower extremity ultrasound negative for deep venous thrombosis.
== END ==
LOC: RADUSWWP 12:06
PROVIDERS: ATTEND Orthopaedic Surgery
DX: I80.9 Phlebitis and thrombophlebitis of unspecified site (principal); R22.43 Localized swelling, mass and lump, lower limb, bilateral; M25.561 Pain in right knee; M17.11 Unilateral primary osteoarthritis, right knee; M79.7 Fibromyalgia; Z68.34 Body mass index [BMI] 34.0-34.9, adult
CPT/HCPCS: 93970

== ENCOUNTER → 2022-01-29 | Outpatient (CLI) | payer MEDICARE ==
--- NOTE | 2022-01-30 09:35 | MM ---
Reason for Exam: Screening (asymptomatic). Last mammogram was performed 1 year(s) and 3 month(s) ago. Patient History: Menarche at age 13. Patient has no children. Left ovary removed at age 65. Right ovary removed at age 65. Hysterectomy at age 33. Postmenopausal. Hormonal Contraceptives for 2 months. 2000, Benign Excisional Biopsy on the right side. Risk Values: Saumya 5 year model risk: 2.3%. NCI Lifetime model risk: 6.6%. Prior Study Comparison: 05/22/2018 Bilateral Screening Mammogram, [facility]. 05/25/2019 Bilateral Screening Mammogram, [facility]. 10/24/2020 Bilateral Screening Mammogram, [facility]. Tissue Density: The breast tissue is heterogeneously dense. This may lower the sensitivity of mammography. Findings: Analyzed By CAD. There is no suspicious group of microcalcifications or new suspicious mass in either breast. Chronic nodular density lower right breast dating back to 2018. Overall Assessment: Benign, BI-RAD 2 Management: Screening Mammogram of both breasts in 1 year. A clinical breast exam by your physician is recommended on an annual basis and results should be correlated with mammographic findings. Electronically signed and approved by: Chandana Emmanuel M.D. Radiologis
== END | disposition home or self-care (01) ==
LOC: RADMAMWWP 09:05
PROVIDERS: ATTEND Obstetrics & Gynecology
DX: Z12.31 Encounter for screening mammogram for malignant neoplasm of breast (principal)
CPT/HCPCS: 77063; 77067

== ENCOUNTER → 2022-01-31 | Outpatient (CLI) | payer MEDICARE ==
--- NOTE | 2022-01-31 11:14 | US ---
EXAMINATION TYPE: US extremity nonvasc mass RT DATE OF EXAM: 01/31/2022 COMPARISON: NONE CLINICAL HISTORY: R22.41 MASS RT LOWER LEG. Right lower leg palpable/painful area x couple years Right anterior lower le.9 x 0.4 x 0.7cm superficial hypoechoic area seen at patient's area of con cern IMPRESSION: 1. Small ill-defined hypoechoic area with some vascularity at the level of the patient's pain. This i s nonspecific. Consider MRI for additional evaluation.
== END | disposition home or self-care (01) ==
LOC: RADUSWWP 09:19
PROVIDERS: ATTEND Surgery
DX: R22.41 Localized swelling, mass and lump, right lower limb (principal)

== ENCOUNTER → 2023-01-30 | Outpatient (CLI) | payer MEDICARE ==
--- NOTE | 2023-01-30 19:03 | BD ---
EXAMINATION TYPE: Axial Bone Density DATE OF EXAM: 01/30/2023 CLINICAL HISTORY: 72 years old Female. ICD-10 CODE: Z78.0 ASYMPTOMATIC MENOPAUSAL STATE Height: 64.5 Weight: 200.0 FRAX RISK QUESTIONS: Alcohol (3 or more units per day): no Family History (Parent hip fracture): no Glucocorticoids (More than 3mos): no (Ex: prednisone, prednisolone, methylprednisolone, dexamethasone, and hydrocortisone). History of Fracture in Adulthood: yes Secondary Osteoporosis: 1. Type 1 Diabetes: no 2. Hyperthyroidism: no 3. Menopause before 45: yes 4. Malnutrition: no 5. Chronic liver disease: no Rheumatoid Arthritis: no Current Tobacco Use: no RISK FACTORS HISTORY OF: Spine Fracture: yes When: History of Wrist Fracture: right When: Surgery to Spine/Hip(right/left)/Wrist (right/left): spine When: Family History of Osteoporosis: yes Active: no Diet low in dairy products/other sources of calcium: yes Postmenopausal woman: yes Lost more than 2 inches in height since high school: yes MEDICATIONS: Thyroid Medications: Which medication: How Long: Additional History: EXAM MEASUREMENTS: Bone mineral densitometry was performed using the [employer] System. Bone mineral density about the R hip (g/cm2): 0.795 T Score values are as follows: -----R Neck: -1.6 -----R Total: -1.7 Z Score values are as follows: -----R Neck: -0.4 -----R Total: -0.8 Bone mineral density has: decreased -2.9 % since study of: 06.30.2020 Bone mineral density about the R Wrist (g/cm2): 0.452 T Score values are as follows: -----Dist. R+U: -3.3 -----Prox. R+U: -2.7 -----Radius total: -3.7 Z Score values are as follows: -----Dist. R+U: -1.3 -----Prox. R+U: -0.8 -----Radius total: -1.8 Bone mineral density has: decreased -6.6 % since study of: 06.30.2020 FRAX%s: The graph provided illustrates a 15.4% chance for a major osteoporotic fx and a 2.3% chance f or the hips probability for fx in 10 years time. IMPRESSION: Osteoporosis (T Score less than -2.5). There is increased fracture risk and therapy is usually indicated based on age. Re-Screen 1-2 years. NOTE: T-SCORE=SD OF THE YOUNG ADULT MEAN.
--- NOTE | 2023-01-31 18:20 | MM ---
Reason for Exam: Screening (asymptomatic). Last screening mammogram was performed 12 month(s) ago. Patient History: Menarche at age 13. Patient has no children. Left ovary removed at age 65. Right ovary removed at age 65. Hysterectomy at age 33. Postmenopausal. Hormonal Contraceptives for 2 months. 1999, Benign Excisional Biopsy on the right side. Risk Values: Saumya 5 year model risk: 2.3%. NCI Lifetime model risk: 6.3%. Prior Study Comparison: 05/25/2019 Bilateral Screening Mammogram, [facility]. 10/24/2020 Bilateral Screening Mammogram, [facility]. 01/29/2022 Bilateral MG 3D screening mammo w/cad, [facility]. Tissue Density: The breast tissue is heterogeneously dense. This may lower the sensitivity of mammography. Findings: Analyzed By CAD. Some regional round and punctate calcifications on the right remain unchanged. There is no suspicious group of microcalcifications or new suspicious mass in either breast. Overall Assessment: Benign, BI-RAD 2 Management: Screening Mammogram of both breasts in 1 year. . Patient should continue monthly self-breast exams. A clinical breast exam by your physician is recommended on an annual basis. This exam should not preclude additional follow-up of suspicious palpable abnormalities. Note on Saumya scores and lifetime risk: 1. A Saumya score greater than 3% is considered moderate risk. If this is the case, consider specialist referral to assess eligibility for a risk reducing agent. 2. If overall lifetime risk for the development of breast cancer is 20% or higher, the patient may qualify for future screening with alternating mammogram and breast MRI. Electronically signed and approved by: Barron Cruz M.D. Radiologist
== END | disposition home or self-care (01) ==
LOC: RADMAMWWP 10:44
PROVIDERS: ATTEND Obstetrics & Gynecology
DX: Z12.31 Encounter for screening mammogram for malignant neoplasm of breast (principal); M81.0 Age-related osteoporosis without current pathological fracture; M85.89 Other specified disorders of bone density and structure, multiple sites; Z78.0 Asymptomatic menopausal state
CPT/HCPCS: 77063; 77067; 77080

== ENCOUNTER 2023-04-09 05:09 | Emergency (ER) | payer MEDICARE ==
--- NOTE | 2023-04-09 05:31 | ED ---
Fall HPI <Julio Vang - Last Filed: 04/09/23 10:32> - General Source: patient Mode of arrival: wheelchair - History of Present Illness MD Complaint: fall Onset/Timin -: hour(s) Fall From: standing When Fall Occurred: just prior to arrival Fall Witnessed: no Place Fall Occurred: home Loss of Consciousness: unsure Prolonged Down Time?: no <Julian Buckley - Last Filed: 04/29/23 05:14> - General Chief Complaint: Fall Stated Complaint: Seizure, Fall, Head Injury Time Seen by Provider: 04/09/23 05:28 - History of Present Illness Initial Comments: This patient is 72-year-old woman presenting to have evaluation after ground- level fall. Patient had gone up to use bathroom and then she remembers coming to on the floor. She thought she may have had a seizure at onset. She is having head/neck pain as well as knee pain. Patient denied any neurologic symptoms. (Julian Buckley) - Related Data Home Medications Medication Instructions Recorded Confirmed Niacin [Niaspan] 100 mg PO DAILY 08/15/14 04/09/23 allopurinoL [Zyloprim] 300 mg PO W/LUNCH 08/15/14 04/09/23 levETIRAcetam [Keppra] 750 mg PO BID 03/12/17 04/09/23 Valsartan [Diovan] 320 mg PO HS 08/09/19 04/09/23 Acetaminophen/Diphenhydramine 1 tab PO HS 04/09/23 04/09/23 [Tylenol PM 500-25mg] Alendronate Sodium 70 mg PO SA 04/09/23 04/09/23 Cholecalciferol [Vitamin D3 (25 50 mcg PO DAILY 04/09/23 04/09/23 Mcg = 1000 Iu)] Eszopiclone [Lunesta] 1 mg PO HS PRN 04/09/23 04/09/23 Folic Acid 1 mg PO DAILY 04/09/23 04/09/23 Furosemide [Lasix] 20 mg PO BID-W/MEALS 04/09/23 04/09/23 Levothyroxine Sodium 125 mcg PO AC-BRKFST 04/09/23 04/09/23 Potassium Chloride ER [K-Dur 20] 20 mg PO DAILY 04/09/23 04/09/23 hydroCHLOROthiazide [Hydrodiuril] 25 mg PO DAILY 04/09/23 04/09/23 Previous Rx's Medication Instructions Recorded Apixaban [Eliquis] 5 mg PO BID #0 tab 03/14/17 Allergies Allergy/AdvReac Type Severity Reaction Status Date / Time celecoxib [From Celebrex] Allergy Severe MUSCLE PAIN Verified 04/09/23 09:46 pregabalin [From Lyrica] Allergy Severe Swelling Verified 04/09/23 09:46 gabapentin Allergy Swelling Verified 04/09/23 09:46 rosuvastatin calcium Allergy Swelling Verified 04/09/23 09:46 [From Crestor] hydrocodone bitartrate AdvReac Severe Nausea & Verified 04/09/23 09:46 [From Vicodin] Vomiting hydromorphone HCl AdvReac Severe SEIZURE Verified 04/09/23 09:46 [From Dilaudid] morphine AdvReac Severe Nausea & Verified 04/09/23 09:46 Vomiting oxycodone HCl AdvReac Severe Nausea & Verified 04/09/23 09:46 [From OxyContin] Vomiting dabigatran etexilate mesylate AdvReac Internal Verified 04/09/23 09:46 [From Pradaxa] bleeding diclofenac sodium AdvReac GI BLEED Verified 04/09/23 09:46 [From Voltaren] isradipine [From DynaCirc] AdvReac muscle Verified 04/09/23 09:46 cramping Milk Containing Products AdvReac Abdominal Verified 04/09/23 09:46 [Dairy] Pain nitrofurantoin AdvReac seizures Verified 04/09/23 09:46 [From Macrobid] simvastatin [From Zocor] AdvReac muscle Verified 04/09/23 09:46 cramping Tetanus Vaccines and Toxoid AdvReac Unknown Verified 04/09/23 09:46 [Tetanus Vaccines & Toxoid] Childhood tomato AdvReac Nausea & Verified 04/09/23 09:46 Vomiting Review of Systems ROS Other: All systems not noted in ROS Statement are negative. <Julio Vang - Last Filed: 04/09/23 10:32> ROS Other: All systems not noted in ROS Statement are negative. Constitutional: Denies: fever, weakness Eyes: Denies: vision change Respiratory: Denies: cough, dyspnea Cardiovascular: Reports: syncope. Denies: chest pain, palpitations, edema Gastrointestinal: Denies: abdominal pain, vomiting, diarrhea Genitourinary: Denies: dysuria Musculoskeletal: Reports: as per HPI, arthralgia Skin: Denies: lesions Neurological: Reports: headache. Denies: weakness, numbness, confusion <Julian Buckley - Last Filed: 04/29/23 05:14> ROS Statement: Those systems with pertinent positive or pertinent negative responses have been documented in the HPI. Past Medical History Past Medical History: Atrial Fibrillation, Asthma, Deep Vein Thrombosis (DVT), Fibromyalgia, GI Bleed, Hyperlipidemia, Hypertension, Musculoskeletal Disorder, Pulmonary Embolus (PE), Seizure Disorder, Thyroid Disorder Additional Past Medical History / Comment(s): Seizure disorder, seizure 06/26/19. Autoimmune dx unknown etiology, per [facility], (brother has factor V, from DVT, she's tested neg. remote asthma, lower GI bleed r/t pradaxa, UTIs ongoing, osteopenia, degenerative arthritis gianfranco hips/spine, herniated disc, chronic back pain, myofascial pain syndrome, edema legs/feet, shingelles x2 History of Any Multi-Drug Resistant Organisms: None Reported Past Surgical History: Appendectomy, Back Surgery, Hysterectomy, Joint Replacement, Orthopedic Surgery Additional Past Surgical History / Comment(s): Back SX(Laminectomy X2, 4 Fusions), Partial Hysterectomy, later PELVIC MASS (BENIGN) REMOVED w/ gianfranco ovaries, D&C, Exc Uterine Fibroids, TOTAL L HIP ARTHROPLASTY, LT CTR, THRASHER NEUROMA LT FOOT, R HEEL BONE SPUR Exc, L ELBOW ULNAR RELEASE, Colonoscopy x2, GIANFRANCO Knee Arthroscopies, Back Injections. Rt ankle tenosynovectomy. Thyroidectomy Past Anesthesia/Blood Transfusion Reactions: Motion Sickness, Postoperative Nausea & Vomiting (PONV) Additional Past Anesthesia/Blood Transfusion Reaction / Comment(s): (Claustrophobic). Requests Zofran pre-op. Past Psychological History: No Psychological Hx Reported Past Alcohol Use History: Rare Past Drug Use History: None Reported - Past Family History Father Family Medical History: CVA/TIA, Myocardial Infarction (NV) Additional Family Medical History / Comment(s): AGE 57 NV. HAD CVA. Blood Clots. Mother Family Medical History: Cancer, Deep Vein Thrombosis (DVT), Myocardial Infarct ion (NV) Additional Family Medical History / Comment(s): LUNG CA. AT 72 FROM [place] THOUGHT CAUSED BY RADIATION TX FOR LUNG CANCER. Brother(s) Family Medical History: Asthma, Deep Vein Thrombosis (DVT), Pulmonary Embolus Additional Family Medical History / Comment(s): Factor V <Julian Buckley - Last Filed: 04/29/23 05:14> General Exam Limitations: no limitations General appearance: alert, in no apparent distress Head exam: Present: normocephalic Eye exam: Present: normal appearance, PERRL, EOMI. Absent: scleral icterus, conjunctival injection ENT exam: Present: normal oropharynx Neck exam: Present: normal inspection, tenderness, full ROM Respiratory exam: Present: normal lung sounds bilaterally. Absent: respiratory distress, wheezes, rales Cardiovascular Exam: Present: regular rate, normal rhythm, normal heart sounds. Absent: systolic murmur, diastolic murmur, rubs, gallop GI/Abdominal exam: Present: soft. Absent: distended, tenderness, guarding, rebound, rigid Extremities exam: Present: tenderness (Anterior aspect left knee), normal capillary refill. Absent: full ROM, pedal edema, calf tenderness Back exam: Present: normal inspection. Absent: CVA tenderness (R), CVA tenderness (L), vertebral tenderness Neurological exam: Present: alert, oriented X3, CN II-XII intact. Absent: motor sensory deficit Skin exam: Present: warm, dry, intact, normal color. Absent: rash <MelvinJulian roach - Last Filed: 04/29/23 05:14> Course <Julio Vagn - Last Filed: 04/09/23 10:32> Vital Signs 04/09/23 04/09/23 04/09/23 05:12 07:36 10:32 Temperature 98.8 F 97.8 F 97.9 F Pulse Rate 65 68 63 Respiratory 20 18 Rate Blood Pressure 127/74 135/79 111/66 O2 Sat by Pulse 98 98 99 Oximetry - Reevaluation(s) Reevaluation #1: 04/09/23 10:32 Patient CMP has not resulted in there is a problem with the analyzer in the lab. Patient is informed that this could take additional time and she prefers to be discharged. She is aware that these results have not been finalized. (Julio Mendez) Medical Decision Making - Lab Data Result diagrams: 04/09/23 08:00 <Julio Vang - Last Filed: 04/09/23 10:32> - Lab Data Result diagrams: 04/09/23 08:00 04/09/23 08:23 <Julian Buckley - Last Filed: 04/29/23 05:14> - Medical Decision Making Was pt. sent in by a medical professional or institution (, PA, [employer]IMMER, urgent care, hospital, or custodial...) When possible be specific @ -No Did you speak to anyone other than the patient for history (EMS, parent, family, police, friend...)? What history was obtained from this source @ -No Did you review nursing and triage notes (agree or disagree)? Why? @ -I reviewed and agree with nursing and triage notes Were old charts reviewed (outside hosp., previous admission, EMS record, old EKG, old radiological studies, urgent care reports/EKG's, custodial records)? Report findings @ -No old charts were reviewed Differential Diagnosis (chest pain, altered mental status, abdominal pain women, abdominal pain men, vaginal bleeding, weakness, fever, dyspnea, syncope, headache, dizziness, GI bleed, back pain, seizure, CVA, palpatations, mental health, musculoskeletal)? @ -[Differential Syncope: Valvular disease, hypertrophic cardiomyopathy, pulmonary embolism, tamponade, tachycardia, bradycardia, NV, hypovolemia, hemorrhage, dissection, anemia, intracranial hemorrhage, seizure, hypoglycemia, carbon monoxide poisoning, this is not meant to be an all-inclusive list. EKG interpreted by me (3pts min.). @Sinus bradycardia, rate of 53, WA interval 206, QRS duration 117, QTC 401, no ST segment elevation X-rays interpreted by me (1pt min.). @ -X-rays of the knee and chest negative for traumatic injury CT interpreted by me (1pt min.). @ -CT brain and cervical spine negative for traumatic injury U/S interpreted by me (1pt. min.). @ -None done What testing was considered but not performed or refused? (CT, X-rays, U/S, labs)? Why? @ -None What meds were considered but not given or refused? Why? @ -None Did you discuss the management of the patient with other professionals (professionals i.e. , PA, [employer] TR[employer]MER, lab, RT, psych nurse, nursing home social worker, media promoter, teacher, cavalry officer, case briefer)? Give summary @ -No Was smoking cessation discussed for >3mins.? @ -No Was critical care preformed (if so, how long)? @ -No Were there social determinants of health that impacted care today? How? (Homelessness, low income, unemployed, alcoholism, drug addiction, transportation, low edu. Level, literacy, decrease access to med. care, alf, rehab)? @ -No Was there de-escalation of care discussed even if they declined (Discuss DNR or withdrawal of care, Hospice)? DNR status @ -No What co-morbidities impacted this encounter? (DM, HTN, Smoking, COPD, CAD, Cancer, CVA, ARF, Chemo, Hep., AIDS, mental health diagnosis, sleep apnea, morbid obesity)? @ Seizure disorder, hypertension Was patient admitted / discharged? Hospital course, mention meds given and route, prescriptions, significant lab abnormalities, going to OR and other pertinent info. @ -Patient's care was signed out at shift change awaiting imaging. CT brain negative for intracranial hemorrhage or mass effect, CT of the cervical spine negative for fracture subluxation. Chest x-ray and knee x-ray are negative for traumatic injury. Patient stable for discharge at this time. Undiagnosed new problem with uncertain prognosis? @ -No Drug Therapy requiring intensive monitoring for toxicity (Heparin, Nitro, Insulin, Cardizem)? @ -No Were any procedures done? @ -No Diagnosis/symptom? @ Fall, possible syncope, concussion Acute, or Chronic, or Acute on Chronic? @ -[Acute Uncomplicated (without systemic symptoms) or Complicated (systemic symptoms)? @ -default Side effects of treatment? @ -No Exacerbation, Progression, or Severe Exacerbation? @ -No Poses a threat to life or bodily function? How? (Chest pain, USA, NV, pneumonia, PE, COPD, DKA, ARF, appy, cholecystitis, CVA, Diverticulitis, Homicidal, Suicidal, threat to staff... and all critical care pts) @ -Low risk at this time (Julio Vang) - Lab Data Lab Results 04/09/23 04/09/23 04/09/23 Range/Units 08:00 08:00 08:23 WBC 6.7 (3.8-10.6) k/uL RBC 4.32 (3.80-5.40) m/uL Hgb 14.3 (11.4-16.0) gm/dL Hct 42.3 (34.0-46.0) % MCV 97.8 (80.0-100.0) fL MCH 33.0 (25.0-35.0) pg MCHC 33.7 (31.0-37.0) g/dL RDW 13.2 (11.5-15.5) % Plt Count 154 (150-450) k/uL MPV 8.9 Neutrophils % 59 % Lymphocytes % 28 % Monocytes % 8 % Eosinophils % 3 % Basophils % 1 % Neutrophils # 3.9 (1.3-7.7) k/uL Lymphocytes # 1.9 (1.0-4.8) k/uL Monocytes # 0.5 (0-1.0) k/uL Eosinophils # 0.2 (0-0.7) k/uL Basophils # 0.0 (0-0.2) k/uL Sodium 136 L (137-145) mmol/L Potassium 4.1 (3.5-5.1) mmol/L Chloride 100 (98-107) mmol/L Carbon Dioxide 29 (22-30) mmol/L Anion Gap 7 mmol/L BUN 29 H (7-17) mg/dL Creatinine 0.77 (0.52-1.04) mg/dL Est GFR (CKD-EPI)AfAm 90 (>60 ml/min/1.73 sqM) Est GFR (CKD-EPI)NonAf 78 (>60 ml/min/1.73 sqM) Glucose 92 (74-99) mg/dL Calcium 9.4 (8.4-10.2) mg/dL Magnesium 2.2 (1.6-2.3) mg/dL Total Bilirubin 0.5 (0.2-1.3) mg/dL AST 34 (14-36) U/L ALT 25 (4-34) U/L Alkaline Phosphatase 100 (38-126) U/L Total Protein 7.2 (6.3-8.2) g/dL Albumin 4.2 (3.5-5.0) g/dL Urine Color Yellow Urine Appearance Clear (Clear) Urine pH 7.0 (5.0-8.0) Ur Specific [place] 1.018 (1.001-1.035) Urine Protein Negative (Negative) Urine Glucose (UA) Negative (Negative) Urine Ketones Negative (Negative) Urine Blood Negative (Negative) Urine Nitrite Negative (Negative) Urine Bilirubin Negative (Negative) Urine Urobilinogen <2.0 (<2.0) mg/dL Ur Leukocyte Esterase Large H (Negative) Urine RBC 2 (0-5) /hpf Urine WBC 9 H (0-5) /hpf Ur Squamous Epith Cells 1 (0-4) /hpf Amorphous Sediment Rare H (None) /hpf Urine Mucus Rare H (None) /hpf Disposition Is patient prescribed a controlled substance at d/c from ED?: No Time of Disposition: 09:53 <Julio Vang - Last Filed: 04/09/23 10:32> <Julian Buckley - Last Filed: 04/29/23 05:14> Clinical Impression: Fall, Concussion Disposition: HOME SELF-CARE Condition: Fair Instructions (If sedation given, give patient instructions): Concussion (ED), Fall Prevention (ED) Referrals: Kim Becerril MD [Primary Care Provider] - 1-2 days
[2023-04-09] MEDS ORDERED: SODIUM CHLORIDE 0.9% 500 ML 500 ML IV ONE (07:33)
[2023-04-09] MEDS ORDERED: ACETAMINOPHEN TAB 500 MG TAB PO STA (07:33)
[2023-04-09 07:37] VITALS: RESP 18
--- NOTE | 2023-04-09 08:11 | XR ---
EXAMINATION TYPE: XR knee complete RT DATE OF EXAM: 04/09/2023 CLINICAL HISTORY: pain TECHNIQUE: Three views of the right knee are obtained. COMPARISON: None. FINDINGS: There is no acute fracture/dislocation. The tri-compartment joint spaces appear moderatel y narrowed. The overlying soft tissue appears unremarkable. IMPRESSION: There is no acute fracture or dislocation.ICD 10 NO FRACTURE, INITIAL EVALUATION
--- NOTE | 2023-04-09 08:17 | CT ---
EXAMINATION TYPE: CT brain kyle eaton DATE OF EXAM: 04/09/2023 COMPARISON: 03/12/2017 HISTORY: fall injury Unenhanced CT of the brain was performed. The ventricles, basal cisterns and sulci overlying the cerebral convexities demonstrate mild enlargem ent. There is no evidence for intracranial hemorrhage or sulcal effacement. There is decreased attenuatio n about the periventricular white matter and deep white matter of both cerebral hemispheres, compatib le with chronic small vessel ischemia. No mass effects are seen. If symptoms persist consider MRI. Osseous calvarium is intact. IMPRESSION: 1. Age related atrophic and chronic small vessel ischemic change without acute intracranial process seen at this time. CT Cervical Spine: Unenhanced CT of the cervical spine was performed with bone and soft tissue window settings submitted . Coronal and sagittal reconstruction is obtained. There is normal alignment and prevertebral soft tissues. No evidence for acute cervical fracture . Postoperative changes of ACDF at C5-6 and C6-7. Scattered degenerative disc disease and spondylosis. Biapical scarring. IMPRESSION: 1. No evidence for acute fracture or subluxation of the cervical spine.
[2023-04-09 08:26] LABS: Basophils % (A) 1 %; Eosinophils # (A) 0.2 k/uL (0-0.7); Eosinophils % (A) 3 %; HCT 42.3 % (34.0-46.0); HGB 14.3 gm/dL (11.4-16.0); Lymphocytes # (A) 1.9 k/uL (1.0-4.8); Lymphocytes % (A) 28 %; MCHC 33.7 g/dL (31.0-37.0); MCV 97.8 fL (80.0-100.0); Mean Platelet Volume 8.9; Monocytes # (A) 0.5 k/uL (0-1.0); Monocytes % (A) 8 %; Neutrophils # (A) 3.9 k/uL (1.3-7.7); Neutrophils % (A) 59 %; Platelet Count 154 k/uL (150-450); RBC 4.32 m/uL (3.80-5.40); RDW 13.2 % (11.5-15.5); WBC 6.7 k/uL (3.8-10.6)
[2023-04-09 08:36] LABS: Amorphous Sediment,Urine Rare /hpf; Appearance,Urine Clear (Clear); Bilirubin,Urine Negative (Negative); Blood,Urine Negative (Negative); Color,Urine Yellow; Glucose,Urine (UA) Negative (Negative); Ketones,Urine Negative (Negative); Leukocyte Esterase,Urine Large (Negative); Mucus,Urine Rare /hpf; Nitrite,Urine Negative (Negative); Protein,Urine Negative (Negative); RBC,Urine 2 /hpf (0-5); Specific Gravity,Urine 1.018 (1.001-1.035); Squamous Epithelial Cell,Urine 1 /hpf (0-4); Urobilinogen,Urine <2.0 mg/dL (<2.0); WBC,Urine 9 /hpf (0-5)
--- NOTE | 2023-04-09 09:06 | XR ---
EXAMINATION TYPE: XR chest 2V DATE OF EXAM: 04/09/2023 COMPARISON: 05/08/2015 HISTORY: Shortness of breath TECHNIQUE: Frontal and lateral views of the chest are obtained. FINDINGS: Scattered senescent parenchymal changes noted. Hyperinflation compatible with COPD. No evidence for infiltrate. No evidence for atelectasis. Heart size is stable. Mediastinal structures are stable and grossly unremarkable. No evidence for hilar prominence. Degenerative changes dorsal spine. IMPRESSION: 1. No evidence for acute pulmonary disease.
[2023-04-09 10:35] VITALS: BP 111/66; PULSE 63; TEMP 97.9
[2023-04-09 10:44] LABS: ALT 25 U/L (4-34); AST 34 U/L (14-36); African American GFR (CKD) 90 (>60 ml/min/1.73 sqM); Albumin 4.2 g/dL (3.5-5.0); Alkaline Phosphatase 100 U/L (38-126); Anion Gap 7 mmol/L; Blood Urea Nitrogen 29 mg/dL (7-17); Calcium 9.4 mg/dL (8.4-10.2); Carbon Dioxide 29 mmol/L (22-30); Chloride 100 mmol/L (98-107); Glucose 92 mg/dL (74-99); Magnesium 2.2 mg/dL (1.6-2.3); Non-African American GFR(CKD) 78 (>60 ml/min/1.73 sqM); Potassium 4.1 mmol/L (3.5-5.1); Sodium 136 mmol/L (137-145); Total Bilirubin 0.5 mg/dL (0.2-1.3); Total Protein 7.2 g/dL (6.3-8.2)
== END 2023-04-09 11:06 | disposition home or self-care (01) ==
LOC: EC 05:09
DX: S06.0XAA Concussion with loss of consciousness status unknown, initial encounter (principal); R40.2412 Glasgow coma scale score 13-15, at arrival to emergency department; I10 Essential (primary) hypertension; G40.909 Epilepsy, unspecified, not intractable, without status epilepticus; J45.909 Unspecified asthma, uncomplicated; E07.9 Disorder of thyroid, unspecified; Z79.890 Hormone replacement therapy; Z79.899 Other long term (current) drug therapy; Z88.1 Allergy status to other antibiotic agents; Z88.5 Allergy status to narcotic agent; Z88.6 Allergy status to analgesic agent; Z88.7 Allergy status to serum and vaccine; Z88.8 Allergy status to other drugs, medicaments and biological substances; Z91.011 Allergy to milk products; Z91.018 Allergy to other foods; W18.30XA Fall on same level, unspecified, initial encounter
CPT/HCPCS: 36415; 70450; 71046; 72125; 80053; 81001; 83735; 85025; 87086; 93005; 96360; 96361; 99285

== ENCOUNTER → 2024-02-02 | Outpatient (CLI) | payer MEDICARE ==
--- NOTE | 2024-02-03 08:10 | MM ---
Reason for Exam: Screening (asymptomatic). Last screening mammogram was performed 12 month(s) ago. Patient History: Menarche at age 13. Patient has no children. Left ovary removed at age 65. Right ovary removed at age 65. Hysterectomy at age 33. Postmenopausal. Hormonal Contraceptives for 2 months. 1999, Benign Excisional Biopsy on the right side. Risk Values: Saumya 5 year model risk: 2.3%. NCI Lifetime model risk: 6.0%. Prior Study Comparison: 10/24/2020 Bilateral Screening Mammogram, [facility]. 01/29/2022 Bilateral MG 3D screening mammo w/cad, [facility]. 01/30/2023 Bilateral MG 3D screening mammo w/cad, [facility]. Tissue Density: The breasts are heterogeneously dense, which may obscure small masses. Findings: Analyzed By CAD. There is no suspicious group of microcalcifications or new suspicious mass in either breast. Stable asymmetric tissue within the upper outer margin left breast unchanged from multiple prior exams. Overall Assessment: Benign, BI-RAD 2 Management: Screening Mammogram of both breasts in 1 year. . Patient should continue monthly self-breast exams. A clinical breast exam by your physician is recommended on an annual basis. This exam should not preclude additional follow-up of suspicious palpable abnormalities. Note on Saumya scores and lifetime risk: 1. A Saumya score greater than 3% is considered moderate risk. If this is the case, consider specialist referral to assess eligibility for a risk reducing agent. 2. If overall lifetime risk for the development of breast cancer is 20% or higher, the patient may qualify for future screening with alternating mammogram and breast MRI. Electronically signed and approved by: Wai Jones M.D. Radiologis
== END | disposition home or self-care (01) ==
LOC: RADMAMWWP 13:25
PROVIDERS: ATTEND Internal Medicine
DX: Z12.31 Encounter for screening mammogram for malignant neoplasm of breast (principal); Z78.0 Asymptomatic menopausal state
CPT/HCPCS: 77063; 77067

== ENCOUNTER → 2025-01-11 | Outpatient (CLI) | payer MEDICARE ==
--- NOTE | 2025-01-11 11:19 | US ---
EXAMINATION TYPE: US venous doppler duplex LE RT DATE OF EXAM: 01/11/2025 10:42 AM COMPARISON: US CLINICAL INDICATION: Female, 74 years old with history of M79.661 PAIN LOW RT LEG, R22.41; Pt states pain behind right knee, pt currently on blood thinners, Pain TECHNIQUE: The lower extremity deep venous system is examined utilizing real time linear array sonog jay with graded compression, color doppler sonography, and spectral doppler. SIDE PERFORMED: Right FINDINGS: VESSELS IMAGED: Common Femoral Vein Deep Femoral Vein Greater Saphenous Vein * Femoral Vein Popliteal Vein Small Saphenous Vein * Proximal Calf Veins (* superficial vessels) Right Leg: Negative for DVT, Color Doppler imaging shows patency of the vessels. Spectral waveforms are within normal limits. IMPRESSION: No evidence for DVT within the right lower extremity imaged from the groin to the upper calf. [facility], , 01/11/2025 11:16 AM
== END | disposition home or self-care (01) ==
LOC: RADUSWWP 10:19
PROVIDERS: ATTEND Internal Medicine
DX: R22.41 Localized swelling, mass and lump, right lower limb (principal); M79.661 Pain in right lower leg

== ENCOUNTER → 2025-02-04 | Outpatient (CLI) | payer MEDICARE ==
--- NOTE | 2025-02-07 09:07 | MM ---
Reason for Exam: Screening (asymptomatic). Last screening mammogram was performed 12 month(s) ago. Patient History: Menarche at age 13. Patient has no children. Left ovary removed at age 65. Right ovary removed at age 65. Hysterectomy at age 33. Postmenopausal. Hormonal Contraceptives for 2 months. 1999, Benign Excisional Biopsy on the right side. Risk Values: Saumya 5 year model risk: 2.3%. NCI Lifetime model risk: 5.7%. Prior Study Comparison: 01/29/2022 Bilateral MG 3D screening mammo w/cad, [facility]. 01/30/2023 Bilateral MG 3D screening mammo w/cad, [facility]. 02/02/2024 Bilateral MG 3D screening mammo w/cad, [facility]. Tissue Density: There are scattered areas of fibroglandular density. Findings: Analyzed By CAD. There is no suspicious group of microcalcifications or new suspicious mass in either breast. Overall Assessment: Negative, BI-RAD 1 Management: Screening Mammogram of both breasts in 1 year. Patient should continue monthly self-breast exams. A clinical breast exam by your physician is recommended on an annual basis. This exam should not preclude additional follow-up of suspicious palpable abnormalities. Note on Saumya scores and lifetime risk: 1. A Saumya score greater than 3% is considered moderate risk. If this is the case, consider specialist referral to assess eligibility for a risk reducing agent. 2. If overall lifetime risk for the development of breast cancer is 20% or higher, the patient may qualify for future screening with alternating mammogram and breast MRI. [facility], , 02/07/2025 9:05 AM. Electronically signed and approved by: Barron Cruz M.D. Radiologist
== END | disposition home or self-care (01) ==
LOC: RADBDWWP 15:48
PROVIDERS: ATTEND Internal Medicine
DX: Z12.31 Encounter for screening mammogram for malignant neoplasm of breast (principal); R92.323 Mammographic fibroglandular density, bilateral breasts; Z78.0 Asymptomatic menopausal state; Z92.0 Personal history of contraception
CPT/HCPCS: 77063; 77067

== ENCOUNTER → 2025-02-10 | Outpatient (CLI) | payer MEDICARE ==
[2025-02-10 16:58] LABS: NT-Pro-B-Type Natriuretic Pept 66 pg/mL (0-125)
[2025-02-10 17:00] LABS: ALT 24 U/L (8-44); AST 33 U/L (13-35); Albumin/Globulin Ratio 1.67 Ratio (1.60-3.17); Alkaline Phosphatase 76 U/L (41-126); BUN/Creat Ratio 25.33 Ratio (12.00-20.00); Blood Urea Nitrogen 22.8 mg/dL (9.0-27.0); Calcium 9.4 mg/dL (8.7-10.3); Carbon Dioxide 24.3 mmol/L (21.6-31.8); Chloride 103 mmol/L (96-109); Globulin 2.4 g/dL (1.6-3.3); Glucose 97 mg/dL (70-110); Potassium 3.6 mmol/L (3.5-5.5); Sodium 141 mmol/L (135-145); Total Bilirubin 0.3 mg/dL (0.3-1.2); Total Protein 6.4 g/dL (6.2-8.2)
== END | disposition home or self-care (01) ==
LOC: LABWHC1 09:38
PROVIDERS: ATTEND Internal Medicine Interventional Cardiology
DX: R60.0 Localized edema (principal)
CPT/HCPCS: 36415; 80053; 83880

== ENCOUNTER → 2025-03-18 | Outpatient (CLI) | payer MEDICARE ==
[2025-03-18 18:51] LABS: Anion Gap 14.10 mmol/L (4.00-12.00); Blood Urea Nitrogen 39.2 mg/dL (9.0-27.0); Carbon Dioxide 24.9 mmol/L (21.6-31.8); Chloride 101 mmol/L (96-109); Potassium 5.0 mmol/L (3.5-5.5); Sodium 140 mmol/L (135-145)
== END | disposition home or self-care (01) ==
LOC: LABWHC1 12:11
PROVIDERS: ATTEND Internal Medicine Interventional Cardiology
DX: I10 Essential (primary) hypertension (principal)
CPT/HCPCS: 36415; 80051; 82565; 84520